=== PATIENT | female | born 1935 | race Asian ===

== ENCOUNTER 2017-02-20 10:15 | Emergency (ER) | payer MEDICARE, MEDICAID ==
[~2017-02-20] VITALS: Ht 152.4 cm; Wt 79.5 kg
[~2017-02-20 10:15] MED LIST: ALB083NB3 INHALATION; ALLO300T29 PO; AMLO10TA5 PO; ASPI-351 PO; COU25 PO; HYDR12.55 PO; HYDR1CAP2 PO; MICO30CR TP; OMEP20TA86 PO; PRAV80TA PO; VALS320T PO
[2017-02-20 10:20] VITALS: BP 149/63; PULSE 74; RESP 19; O2SAT 100
--- NOTE | 2017-02-20 10:23 | ED.REPORT ---
HPI-Dyspnea / Wheezing Date of Service Feb 20, 2017 ED Provider: Mak Garces MD Patient is an 81 year old female with a history of CHF, pacemaker and recent pleural effusion who presents to the ED complaining of shortness of breath onset 2 days ago. Associated symptoms include wheezing. She denies fever, vomiting, diarrhea, rash or chest pain. The patient was recently hospitalized on 02/04/[address] [facility] for pleural effusion. She recently traveled from the [facility] without any prescription medication. She has not been on any prescription medication since arriving in the [facility]. Nursing Notes Stated Complaint: SOB Chief Complaint: Respiratory Distress Nursing Notes Reviewed: Yes Allergies: Coded Allergies: No Known Allergies (Verified Allergy, Unknown, 02/20/17) Scheduled Albuterol-Expunged Drug, Do Not Renew! (Albuterol-Expunged Drug, Do Not Renew!) 0.83 Mg/Ml Nebu 2.5 MG HHN PRN Allopurinol (Allopurinol) 300 Mg Tablet 300 MG PO DAILY Allopurinol-Expunged Drug, Do Not Renew! (Allopurinol-Expunged Drug, Do Not Renew!) 300 Mg Tablet 300 MG PO DAILY AmLODIPine-Expunged Drug, Do Not Renew! (AmLODIPine-Expunged Drug, Do Not Renew! ) 10 Mg Tablet 10 MG PO DAILY Aspirin-Expunged Drug, Do Not Renew! (Aspirin-Expunged Drug, Do Not Renew!) 325 Mg Tablet 325 MG PO DAILY Atorvastatin (Lipitor) 40 Mg Tablet 40 MG PO DAILY Carvedilol (Carvedilol) 6.25 Mg Tablet 6.25 MG PO BID Furosemide (Lasix) 40 Mg Tablet 40 MG PO DAILY Hydrochlorothiazide-Expunged, Do Not Renew! (Hydrochlorothiazide-Expunged, Do Not Renew!) 12.5 Mg Tablet 12.5 MG PO DAILY Hydrocod/APAP-Expunged, Do Not Renew! (Hydrocod/APAP 5/500-Expunged, Do Not Renew!) 1 Cap Capsule 1 CAP PO PRN Nitrofurantoin Monohyd/M-Cryst (MacroBid) 100 Mg Capsule 100 MG PO BID Omeprazole (Omeprazole) 40 Mg Capsule. 40 MG PO DAILY Omeprazole-Expunged Drug, Do Not Renew! (Omeprazole-Expunged Drug, Do Not Renew! ) 20 Mg Tablet.dr 20 MG PO BID Pravastatin -Expunged Drug, Do Not Renew! (Pravachol-Expunged Drug, Do Not Renew !) 80 Mg Tablet 80 MG PO DAILY Valsartan (Valsartan) 320 Mg Tablet 320 MG PO DAILY Valsartan-Expunged Drug, Do Not Renew! (Diovan-Expunged Drug, Do Not Renew!) 320 Mg Tablet 320 MG PO DAILY Warfarin Inactive Drug Do Not Use (Coumadin Inactive Drug Do Not Use) 2.5 Mg Tablet 2.5 MG PO 17 Warfarin Sodium (Warfarin Sodium) 2.5 Mg Tablet 2.5 MG PO DAILY Miscellaneous Medications Miconazole Nit-Expunged Drug, Do Not Renew! (Miconazole Nit-Expunged Drug, Do Not Renew!) 28.4 Gm Cream.gm. 28.4 GM TP Miconazole Nitrate 2% Kit, take as directed General Time Seen by MD: 10:23 Chief Complaint Shortness of breath Hx Obtained From: Patient, Other family..., End Lathe Operator Arrived By: Walk-in Sudden in Onset?: Yes Onset Occurred: 2 days ago Symptom Duration: Since onset Associated with: Denies: Chest pain, Fever, Vomiting Recent Healthcare: Recent doctor visit, Recent hospitalization Similar Sx Previous: Yes Past Medical History Past Medical History CHF pacemaker pleural effusion Social History Other Social History: Good social support Ambulatory Status Independent Review of Systems Constitutional: Denies: Fever Respiratory: Reports: Shortness of breath, Wheezing, Denies: Non-productive cough Cardiovascular: Denies: Chest pain Skin: Denies Rash Complete sys rev & neg: except as marked. GI: Denies: Diarrhea, Nausea, Vomiting Physical Exam Initial Vital Signs Vital Signs (First) Date Time Temp Pulse Resp B/P Pulse Ox O2 Delivery O2 Flow Rate FiO2 02/20/17 10:20 36.4 74 19 149/63 100 Nasal Cannula 02/20/17 11:45 2 General/Constitutional: Awake, Alert Neck: Atraumatic, Supple, Full range of motion Respiratory / Chest: Atraumatic, Breath sounds NL, Breath sounds = bilat, No respiratory distress, No wheezing Heart Rate / Rhythm: Positive: Irreg irregular rhythm Abdomen: Atraumatic, Soft, Non-tender Lower Extremity / Pelvis / MS: Atraumatic, Full range of motion 1+ edema Skin: Atraumatic, Color NL, No rash, Warm, Dry Neurologic: Oriented X3, Speech NL, No motor deficits, No sensory deficits Head / Eyes: Atraumatic, Normocephalic, PERRL, EOMI Psychiatric: Affect NL, Mood NL Interpretation & Diagnostics Lab Results Interpretation Result Diagram: 02/20/17 1045 02/20/17 1045 Test 02/20/17 10:45 02/20/17 11:45 White Blood Count 10.6th/mm3 (3.8-10.1) Red Blood Count 3.77mil/mm3 (3.90-5.20) Hemoglobin 11.2g/dL (12.0-15.6) Hematocrit 33.7% (35.0-46.0) Mean Corpuscular Volume 89.4fL (81-100) Mean Corpuscular Hemoglobin 29.7pg (27.0-35.0) Mean Corpuscular Hemoglobin Concent 33.2% (32.0-37.0) Red Cell Distribution Width 14.3% (12.3-15.4) Platelet Count 221bil/L (150-400) Neutrophils (%) (Auto) 66.0% (40-74) Lymphocytes (%) (Auto) 22.1% (14-46) Monocytes (%) (Auto) 10.1% (4-12) Eosinophils (%) (Auto) 1.1% (0-5) Basophils (%) (Auto) 0.5% (0-3) Prothrombin Time 35.5sec (8.1-12.5) Prothromb Time International Ratio 3.24ratio Sodium Level 128mEq/L (134-144) Potassium Level 4.7mEq/L (3.5-5.2) Chloride Level 95mEq/L (97-108) Carbon Dioxide Level 18mmol/L (18-29) Blood Urea Nitrogen 28mg/dL (8-27) Creatinine 1.08mg/dL (0.57-1.00) Estimat Glomerular Filtration Rate 70mL/min (>59) Glucose Level 148mg/dL (60-99) Calcium Level 9.2mg/dL (8.5-10.1) Magnesium Level 1.7mg/dL (1.6-2.6) Total Bilirubin 1.5mg/dL (0.0-1.2) Aspartate Amino Transf (AST/SGOT) 39U/L (0-50) Alanine Aminotransferase (ALT/SGPT) 46U/L (0-32) Alkaline Phosphatase 54U/L (25-165) Troponin T 0.010ug/L (0.0-0.011) Pro-B-Type Natriuretic Peptide 1661pg/mL (0-738) Total Protein 7.0g/dL (6.4-8.4) Albumin 3.8g/dL (3.4-5.0) Hold Staples Top Tube Received (Received) Urine Color Straw (YELLOW) Urine Appearance Slightly cloudy Urine pH 5.5 (5.0-8.0) Urine Specific Ophiem 1.015 (1.003-1.035) Urine Protein 30mg/dL (NEG,TRACE) Urine Glucose (UA) Negativemg/dL (NEGATIVE) Urine Ketones Negativemg/dL (NEGATIVE) Urine Occult Blood Small (NEGATIVE) Urine Nitrite Positive (NEGATIVE) Urine Bilirubin Negative (NEGATIVE) Urine Urobilinogen Normalmg/dL (NORMAL) Urine Leukocyte Esterase Moderate (NEGATIVE) Urine RBC 3-10/hpf (0-2) Urine WBC 11-50/hpf (0-5) Urine Epithelial Cells Occasional/hpf (NONE-MOD) Urine Crystals None seen (NONE SEEN) Urine Bacteria Many/hpf (NONE-FEW) Urine Hyaline Casts None/lpf (NONE) Urine Granular Casts None seen (NONE SEEN) Urine Waxy Casts None seen (NONE SEEN) Urine Red Blood Cell Casts None seen (NONE SEEN) Urine White Blood Cell Casts None seen (NONE SEEN) Urine Mucus None seen (None Seen) Urine Trichomonas Present (NONE SEEN) Urine Yeast None (NONE SEEN) Urinalysis Comment None Urine Culture Reflexed Indicated ECG Interpretation ECG Interpretation: paced rhythm, rate 70 Time: 11:03 Interpreted by: ED physician X-Ray Chest Interpretation Chest Xray Interpretation: IMPRESSION: 1. Pulmonary edema with cardiomegaly suggesting congestive heart failure. 2. Possible small pleural effusions. 3. Bibasilar medial opacities consistent with compressive atelectasis or consolidation. Dictated by: Marcos Rider M.D. on 02/20/2017 at 10:55 Approved by: Marcos Rider M.D. on 02/20/2017 at 10:59 View: Portable, 1 view Interpretation / Wet Read by: Interpret - Radiologist Re-Eval/Medical Decision Med Decision/Clinical Course It seems that this woman was recently hospitalized in the [facility] for congestive heart failure and discharged in late November. She has recently traveled to [facility] but without any medications and has been off all prescribed medications for some time now. I think that her symptoms are entirely consistent with exacerbation of known congestive heart failure. Her lab and x-ray and physical exam today are consistent with congestive heart failure. She does not drop her oxygen saturations with exertion here in the emergency department on room air and therefore I believe it is safe to send her home for outpatient follow-up. I spoke with her provider's office agreed to make arrangements for her to be seen in the clinic within the next week. I have refilled all relevant medications to last her at least that long. Re-Evaluation/Progress : Time of Eval: 12:54 )( Re-Eval Resp / Chest: No wheezing Re-Evaluation/Progress Note: Patient states that she still wheezes when she tries to breath and that she has stopped taking her medications since she was seen in the [facility] . Discussed X-ray and lab results. Discussed plan for treatment and plan for discharge. The patient understands and agrees to the plan. All questions were addressed. Consultation : Referral / Consult Name: Jose Butler MD Consulted With: On-call physician Call Returned at: 13:04 Consultant Internship: Agrees with eval, Agrees with plan Counseled Regarding: Diagnosis, Lab results, Need for follow-up, When/why to return to ED Discharge & Departure Impression: Primary Impression: CHF exacerbation Congestive heart failure type: unspecified congestive heart failure type Qualified Code: I50.9 - Heart failure, unspecified Additional Impression: Bladder infection Disposition: Home Discharge Condition All VS Reviewed: Yes Condition: Stable Patient Instructions: Heart Failure (ED), Urinary Tract Infection in Women (ED) Additional Instructions: Thank you for trusting us with your care today. Your labs and X-ray were reassuring. The fluid in your lungs is most likely the reason you are wheezing when you breathe. I believe that your medications should make you feel quite a bit better over the coming days. Please follow up with your primary care physician next week. She should expect a phone call from the clinic in the coming 1 or 2 days, if not, call back and let them know that you need to be seen for an ER follow-up within the next few days. Return to the emergency department if you develop any new or worsening symptoms including chest pain, difficulty breathing, weakness or other concerning symptoms. You also have a bladder infection and I recommend that you take nitrofurantoin twice daily for 5 more days. Referrals: Lisa Iyer MD (PCP) Sean Attestation Portions of this note were transcribed by Jacquelin Berrios. I, Dr. Garces personally performed the history, physical exam and medical decision-making; I reviewed and confirmed the accuracy of the information in the transcribed note. Signed by:Sean Garcia, 02/20/17 and 1030 copies to: Lisa Iyer MD, Kirk H MD Feb 20, 2017 10:23 Vida Berrios Feb 20, 2017 10:30
--- NOTE | 2017-02-20 11:00 | DRSVH ---
PROCEDURE: X-RAY CHEST ONE VIEW, PORTABLE ([id number]) INDICATIONS: dyspnea TECHNIQUE: One view of the chest was acquired. COMPARISON: [facility], CR, XR CHEST 2VW, 07/13/2015, 11:30. FINDINGS: Surgical changes and devices: Left chest wall dual-lead pacemaker appears stable in position. Lungs and pleura: There is increased pulmonary edema bilaterally. Bibasilar retrocardiac opacities a re also demonstrated compatible with atelectasis or consolidation. The costophrenic angles are sligh tly indistinct which may represent small pleural effusions. Mediastinum: Heart size is enlarged. Bones and chest wall: No suspicious bony lesions. Overlying soft tissues appear unremarkable. IMPRESSION: 1. Pulmonary edema with cardiomegaly suggesting congestive heart failure. 2. Possible small pleural effusions. 3. Bibasilar medial opacities consistent with compressive atelectasis or consolidation. Dictated by: Marcos Rider M.D. on 02/20/2017 at 10:55 Approved by: Marcos Rider M.D. on 02/20/2017 at 10:59
[2017-02-20 11:02] LABS: Mean Corpuscular Hemoglobin 29.7 pg (27.0-35.0); Mean Corpuscular Volume 89.4 fL (81-100); Platelet Count 221 bil/L (150-400)
[2017-02-20 11:03] LABS: BASOPHILS % (AUTO) 0.5 % (0-3); EOSINOPHILS % (AUTO) 1.1 % (0-5); MONOCYTES % (AUTO) 10.1 % (4-12)
[2017-02-20 11:25] LABS: TROPONIN T 0.01 ug/L (0.0-0.011)
[2017-02-20] MEDS ORDERED: Furosemide 10 mg/mL 4 mL Inj IVPUSH ONE (11:35)
[2017-02-20 11:36] LABS: Magnesium 1.7 mg/dL (1.6-2.6)
[2017-02-20 11:45] VITALS: BP 148/71; PULSE 76; RESP 22; O2SAT 100
[2017-02-20 11:58] LABS: INR 3.24 ratio
[2017-02-20 12:10] LABS: APPEARANCE,URINE SLIGHTLY CLOUDY (CLEAR,HAZY); COLOR,URINE STRAW (YELLOW); PH,URINE 5.5 (5.0-8.0)
[2017-02-20 12:11] LABS: OCCULT BLOOD,URINE SMALL (NEGATIVE); UROBILINOGEN,URINE NORMAL (NORMAL)
[2017-02-20] MEDS ORDERED: LidocaineVisc 2%:Antacid 1:1 10 mL Syringe PO ONE (12:15)
[2017-02-20] MEDS ORDERED: cefTRIAXone Inj 1,000 MG in Dextrose 5% Minibag Plus 50 ML IV ONE (12:15)
[2017-02-20 12:18] VITALS: BP 136/52; PULSE 79; RESP 19; O2SAT 100
[2017-02-20] MEDS ORDERED: FURO-128 PO (13:12)
[2017-02-20] MEDS ORDERED: OMEP40CA36 PO (13:12)
[2017-02-20] MEDS ORDERED: LIP40 PO (13:12)
[2017-02-20] MEDS ORDERED: ALLO300T2 PO (13:12)
[2017-02-20] MEDS ORDERED: WARF2.5T82 PO (13:12)
[2017-02-20] MEDS ORDERED: VALS320T12 PO (13:12)
[2017-02-20] MEDS ORDERED: CARV6.252 PO (13:12)
[2017-02-20] MEDS ORDERED: NITR100 PO (13:19)
[2017-02-20 13:34] VITALS: BP 127/50; PULSE 65; RESP 19; O2SAT 99
== END 2017-02-20 13:55 | disposition home or self-care (01) ==
LOC: SED 10:15
DX: I50.9 Heart failure, unspecified (principal); N30.90 Cystitis, unspecified without hematuria; B96.1 Klebsiella pneumoniae [K. pneumoniae] as the cause of diseases classified elsewhere; Z79.01 Long term (current) use of anticoagulants; Z79.82 Long term (current) use of aspirin; Z95.0 Presence of cardiac pacemaker
CPT/HCPCS: 36415; 71010; 80053; 81000; 83735; 83880; 84484; 85025; 85610; 87077; 87086; 87088; 87186; 93005; 96365; 96375; 99285; J0696; J1940

== ENCOUNTER 2017-02-26 17:07 | Inpatient (IN) | payer MEDICARE, MEDICAID ==
[~2017-02-26] VITALS: Ht 149.9 cm; Wt 78.9 kg
[2017-02-26] VITALS (9 sets, daily range): BP systolic 127–139; BP diastolic 64–90; PULSE 69–75; RESP 16–29; O2SAT 97–100
[~2017-02-26 17:07] MED LIST changes: +ALLO300T2 PO; +CARV6.252 PO; +FURO-128 PO; +LIP40 PO; +NITR100 PO; +OMEP40CA36 PO; +VALS320T12 PO; +WARF2.5T82 PO
[2017-02-26] MEDS ORDERED: Albuterol-Ipratropium 3 mL Inhalation Solution NEB ONE (17:25)
--- NOTE | 2017-02-26 17:38 | ED.REPORT ---
HPI-Dyspnea / Wheezing Date of Service Feb 26, 2017 ED Provider: Doc,Ed MD History of Present Illness: 81-year-old female here for shortness of breath 2 days. She was seen here for the same 6 days ago. Treated For CHF exacerbation and discharged home. Also diagnosed with UTI at that time. In the last 6 days she has become more weak and more short of breath as well. Shortness of breath worsens with activity. No cough, no sputum production. It seemed to get a lot worse 2 days ago. No fever. History of asthma but no COPD patient is a nonsmoker. Also complains of nausea. pt has pacemaker. Nursing Notes Stated Complaint: SHORTNESS OF BREATH/WEAKNESS Chief Complaint: Respiratory Distress Nursing Notes Reviewed: Yes Allergies: Coded Allergies: No Known Allergies (Verified Allergy, Unknown, 02/20/17) Scheduled Alendronate Sodium (Fosamax) 70 Mg Tablet 70 MG PO WEEKLY THURSDAYS Allopurinol (Allopurinol) 300 Mg Tablet 300 MG PO DAILY Amlodipine (Amlodipine) 10 Mg Tablet 10 MG PO QAM Aspirin Chew (Aspirin Chew) 81 Mg Chew 81 MG PO QAM Atorvastatin (Lipitor) 40 Mg Tablet 40 MG PO HS Carvedilol (Carvedilol) 6.25 Mg Tablet 6.25 MG PO BID Furosemide (Lasix) 40 Mg Tablet 40 MG PO DAILY Omeprazole (Omeprazole) 40 Mg Capsule.dr 40 MG PO DAILY Valsartan (Valsartan) 320 Mg Tablet 320 MG PO HS Warfarin Sodium (Warfarin Sodium) 2.5 Mg Tablet 1.25 MG PO QPM Scheduled PRN Albuterol Neb Soln (Albuterol Neb Soln) 2.5 Mg/3 Ml Vial.neb 2.5 MG INHALATION Q4H PRN PRN For Shortness of Breath Hydrocodone-Acetaminophen 5-325 mg (Hydrocodone-Acetaminophen 5-325 mg) 1 Each Tablet 1 TABLET PO BID PRN PRN For Pain Meclizine (Bonine) 25 Mg Tab.chew 12.5 MG PO TID PRN PRN For Nausea/Vomiting Zinc Oxide (Zinc Oxide) 57 Gm Oint...g. 1 APPLIC TP BID PRN PRN RASH General Time Seen by MD: 17:38 Chief Complaint Asthma attack, Congestive heart failure, Shortness of breath, Wheezing Hx Obtained From: Son, Daughter Arrived By: Walk-in Sudden in Onset?: No Onset Occurred: 2 days ago Symptom Duration: 2 days Location: : Substernal Severity: Current: No pain currently Severity: Maximum: Mild Recent Healthcare: Recent doctor visit Similar Sx Previous: Yes Past Medical History Past Medical History Notes: chf, asthma, Past Medical History CHF pacemaker pleural effusion asthma Social History Other Social History: Good social support Ambulatory Status Independent Review of Systems Basic Review of Systems Eyes: Vision NL, No discharge GI: No abdominal pain, No anorexia, No nausea, No vomiting Constitutional: Reports: Fatigue, Denies: Chills, Fever Respiratory: Reports: Dyspnea on exertion, Shortness of breath, Wheezing, Denies: Non-productive cough Cardiovascular: Reports: Chest pain, Dyspnea on exertion Complete sys rev & neg: except as marked. Physical Exam Initial Vital Signs Vital Signs (First) Date Time Temp Pulse Resp B/P Pulse Ox O2 Delivery O2 Flow Rate FiO2 02/26/17 17:09 36 69 24 139/73 97 Room Air Initial VS: Reviewed, Vital signs normal Head / Eyes: Atraumatic, Normocephalic, PERRL ENT: Mucous membranes moist, Conjunctiva normal, No scleral icterus Abdomen / GI: Soft, Non-tender, No guarding, No rebound, No distention Neurologic: Alert, Oriented, Nonfocal Psychiatric: Mood/affect normal, Behavior normal, Normal thought content General/Constitutional: Awake, Alert Distress / Hydration: Positive: Distress mild Neck: Atraumatic, Supple, No meningismus, Full range of motion, No swelling, Non-tender, No masses Wheezing / Retractions: Positive: Prolonged exp phase, Wheezing expiratory ( prolonged), Wheezing severe Cardiovascular: Heart rate NL, Regular rhythm, Heart sounds NL, Peripheral circulation NL Abdomen: Soft, Non-tender, No guarding, No rebound Skin: Color NL, No rash, Warm, Dry, Turgor NL Interpretation & Diagnostics Lab Results Interpretation Result Diagram: 02/26/17 1727 02/26/17 1727 Test 02/26/17 17:27 White Blood Count 9.2th/mm3 (3.8-10.1) Red Blood Count 3.59mil/mm3 (3.90-5.20) Hemoglobin 10.7g/dL (12.0-15.6) Hematocrit 30.5% (35.0-46.0) Mean Corpuscular Volume 85.0fL (81-100) Mean Corpuscular Hemoglobin 29.8pg (27.0-35.0) Mean Corpuscular Hemoglobin Concent 35.1% (32.0-37.0) Red Cell Distribution Width 13.8% (12.3-15.4) Platelet Count 191bil/L (150-400) Neutrophils (%) (Auto) 73.0% (40-74) Lymphocytes (%) (Auto) 14.5% (14-46) Monocytes (%) (Auto) 11.8% (4-12) Eosinophils (%) (Auto) 0.4% (0-5) Basophils (%) (Auto) 0.1% (0-3) Prothrombin Time 16.5sec (8.1-12.5) Prothromb Time International Ratio 1.53ratio Sodium Level 112mEq/L (134-144) Potassium Level 4.4mEq/L (3.5-5.2) Chloride Level 78mEq/L (97-108) Carbon Dioxide Level 20mmol/L (18-29) Blood Urea Nitrogen 26mg/dL (8-27) Creatinine 0.68mg/dL (0.57-1.00) Estimat Glomerular Filtration Rate 119mL/min (>59) Glucose Level 148mg/dL (60-99) Calcium Level 8.2mg/dL (8.5-10.1) Total Bilirubin 1.9mg/dL (0.0-1.2) Aspartate Amino Transf (AST/SGOT) 47U/L (0-50) Alanine Aminotransferase (ALT/SGPT) 49U/L (0-32) Alkaline Phosphatase 47U/L (25-165) Troponin T < 0.010ug/L (0.0-0.011) Pro-B-Type Natriuretic Peptide 2710pg/mL (0-738) Total Protein 6.8g/dL (6.4-8.4) Albumin 3.7g/dL (3.4-5.0) Hold Staples Top Tube Received (Received) Re-Eval/Medical Decision Med Decision/Clinical Course ER MD reviewed EKG discussed wtih dr bach, will admit. After multiple re-eval's patient does look more comfortable after albuterol treatments still has prolonged expiratory wheeze. Nephrology order serum osmolality, urine osmolality, urine sodium. 1000ml fluid restriction, d/c omeprazole Discharge & Departure Shift Change Sign-Out Laboratory Evaluation: Lab evaluation discussed Response to Therapy: Improved Impression: Primary Impression: Respiratory distress Additional Impressions: CHF exacerbation Congestive heart failure type: unspecified congestive heart failure type Qualified Code: I50.9 - Heart failure, unspecified Hyponatremia Disposition: ADMITTED TO HOSPITAL Discharge Condition All VS Reviewed: Yes Condition: Stable Referrals: Lisa Iyer MD (PCP) EDSupervising Provider for APC: Bong Bach Linnea K ARNP Feb 26, 2017 17:38 All VS Reviewed: Yes Condition: Stable Referrals: Lisa Iyer MD (PCP) EDSupervising Provider for APC: Bong Bach Linnea K ARNP Feb 26, 2017 17:38
[2017-02-26] MEDS ORDERED: Albuterol 2.5 mg/3 mL Inhalation Solution NEB ONE (17:39)
[2017-02-26] MEDS ORDERED: Albuterol 0.5% (5mg/mL) 20 mL Inhalation Solution NEB ONE (17:45)
[2017-02-26] MEDS ORDERED: Ondansetron 2 mg/mL 2 mL Inj IVPUSH ONE (17:45)
[2017-02-26 17:48] LABS: BASOPHILS % (AUTO) 0.1 % (0-3); EOSINOPHILS % (AUTO) 0.4 % (0-5); MONOCYTES % (AUTO) 11.8 % (4-12); Mean Corpuscular Hemoglobin 29.8 pg (27.0-35.0); Platelet Count 191 bil/L (150-400)
--- NOTE | 2017-02-26 18:07 | DRSVH ---
PROCEDURE: X-RAY CHEST ONE VIEW, PORTABLE ([id number]) INDICATIONS: SHORTNESS OF BREATH TECHNIQUE: One view of the chest was acquired. COMPARISON: [facility], CR, XR CHEST 1VW (PORTABLE), 02/20/2017, 10:28. FINDINGS: Surgical changes and devices: There is a left chest wall dual lead pacemaker redemonstrated. Lungs and pleura: No pleural effusions or pneumothorax. There is mild pulmonary edema. Mediastinum: Mediastinal contours appear unchanged. Heart size is enlarged. Bones and chest wall: No suspicious bony lesions. Overlying soft tissues appear unremarkable. IMPRESSION: 1. Mild pulmonary edema and cardiomegaly suggesting congestive heart failure. Dictated by: Marcos Rider M.D. on 02/26/2017 at 18:02 Approved by: Marcos Rider M.D. on 02/26/2017 at 18:05
[2017-02-26 18:11] LABS: INR 1.53 ratio
[2017-02-26 18:16] LABS: TROPONIN T < 0.010 ug/L (0.0-0.011)
[2017-02-26] MEDS ORDERED: Furosemide 10 mg/mL 4 mL Inj IVPUSH ONE (18:20)
[2017-02-26] MEDS ORDERED: Nitroglycerin 2% 1 Gm Ointment TOPICAL SCH (19:25)
[2017-02-26] MEDS ORDERED: ALBU2.5V4 INHALATION (20:30)
[2017-02-26] MEDS ORDERED: ASPI81TA3 PO (20:48)
[2017-02-26] MEDS ORDERED: AMLO10TA3 PO (20:48)
[2017-02-26] MEDS ORDERED: LIP40 PO (20:48)
[2017-02-26] MEDS ORDERED: HYDR-4003 PO (20:48)
[2017-02-26] MEDS ORDERED: VALS320T12 PO (20:49)
[2017-02-26] MEDS ORDERED: WARF2.5T82 PO (20:50)
[2017-02-26] MEDS ORDERED: ALEN70TA2 PO (20:50)
[2017-02-26] MEDS ORDERED: MECL-114 PO (20:52)
[2017-02-26] MEDS ORDERED: ZINC57OI TP (20:54)
[2017-02-26] MEDS ORDERED: Alum-Mag Hydrox-Simeth 30 mL Suspension PO PRN ×2 (21:45→22:00)
[2017-02-26] MEDS ORDERED: Ondansetron 2 mg/mL 2 mL Inj IVPUSH PRN ×2 (21:45→22:00)
[2017-02-26] MEDS ORDERED: Polyethylene Glycol (PEG) 17 Gm Powder PO PRN (22:00)
[2017-02-26] MEDS ORDERED: Senna-Docusate 8.6-50 mg Tablet PO PRN (22:00)
[2017-02-26] MEDS: HYDROcodone-APAP 5-325 mg Tablet PO PRN (23:11)
--- NOTE | 2017-02-26 23:15 | PCM.HPMED ---
Subjective Date of Service Feb 26, 2017 Primary Provider: Admitting Physician: Jasyhree Grimm DO Primary Care Physician: Lisa Iyer MD Attending Physician: Jayshree Grimm DO Admit Status: From the Emergency Department Chief Complaint: Shortness of breath History of Present Illness: Charlotte Mccann is an 81-year-old woman history of congestive heart failure, chronic kidney disease stage III, paroxysmal atrial fibrillation status post dual-chamber pacemaker placement, on anticoagulation with warfarin, who presents to the emergency department with her family for 2 days of ongoing shortness of breath. She was seen here for the same 6 days ago and treated for CHF exacerbation and discharged home with a diagnosis of UTI at the same time. She became weaker and more short of breath as the days went on, family describes her as having a chronic cough, nonproductive. Her shortness of breath as well as lower extremity edema. She get worse 2 days ago. She has no history of asthma or COPD and is a nonsmoker, however she is noticeably wheezing which is also worsened over the last 2 days. Family claims that 2 months ago they were in the [facility] where she had similar presentation, requiring 4 days of treatment in the hospital, at which time they also gave her nebulizer treatments every 4 hours. In the emergency department she was found to have a serum sodium of 112, chloride 78, creatinine 0.68, ALT of 49, BNP 2710, negative troponin INR 1.53 EKG: Atrial ventricular paced complexes. Heart rate 70, QTC 504 In the emergency department, dog hair clipper construction electrician was contacted, Dr. Kevin Peace, requested patient be admitted and be put on fluid restriction. Endorses weakness, shortness of breath, cough, wheezing, bilateral lower extremity edema. Review of Systems: A comprehensive review of systems was conducted with the patient and found to be negative except as above in the history of present illness. Allergies Coded Allergies: No Known Allergies (Verified Allergy, Unknown, 02/20/17) Home Medications Scheduled Alendronate Sodium (Fosamax) 70 Mg Tablet 70 MG PO WEEKLY THURSDAYS Allopurinol (Allopurinol) 300 Mg Tablet 300 MG PO DAILY Amlodipine (Amlodipine) 10 Mg Tablet 10 MG PO QAM Aspirin Chew (Aspirin Chew) 81 Mg Chew 81 MG PO QAM Atorvastatin (Lipitor) 40 Mg Tablet 40 MG PO HS Carvedilol (Carvedilol) 6.25 Mg Tablet 6.25 MG PO BID Furosemide (Lasix) 40 Mg Tablet 40 MG PO DAILY Omeprazole (Omeprazole) 40 Mg Capsule.dr 40 MG PO DAILY Valsartan (Valsartan) 320 Mg Tablet 320 MG PO HS Warfarin Sodium (Warfarin Sodium) 2.5 Mg Tablet 1.25 MG PO QPM Scheduled PRN Albuterol Neb Soln (Albuterol Neb Soln) 2.5 Mg/3 Ml Vial.neb 2.5 MG INHALATION Q4H PRN PRN For Shortness of Breath Hydrocodone-Acetaminophen 5-325 mg (Hydrocodone-Acetaminophen 5-325 mg) 1 Each Tablet 1 TABLET PO BID PRN PRN For Pain Meclizine (Bonine) 25 Mg Tab.chew 12.5 MG PO TID PRN PRN For Nausea/Vomiting Zinc Oxide (Zinc Oxide) 57 Gm Oint...g. 1 APPLIC TP BID PRN PRN RASH PMH Obstructive sleep apnea, uses CPAP Chronic kidney disease stage III Gout GERD Diabetes type II Hypertension Hyperlipidemia NSTEMI in 2011 Osteoporosis Coronary artery disease Paroxysmal atrial fibrillation on Coumadin, status post dual-chamber pacemaker placement. History of tachybradycardia syndrome in 2013 History of asthma per outpatient record Surgical History Pacemaker placement 2011, cardiac catheterization February 2008 Family History Both parents from heart attacks. Has Brother with CHF Social History Hx Alcohol Use: No Hx Substance Use: No Hx Tobacco Use: No Smoking Status: Never Smoker Living Arrangement: with Family Exam Vital Signs Vital Sign - Last Date Time Temp Pulse Resp B/P Pulse Ox O2 Delivery O2 Flow Rate FiO2 02/26/17 22:53 70 02/26/17 22:13 36.4 16 133/65 99 Room Air Exam General: Sitting up at bedside, alert, not oriented to place, time, or knowing why she is here. HEENT: Normocephalic, atraumatic, EOMI grossly, neck is supple without lymphadenopathy, oral mucosa is moist, conjunctiva is pink. Cardiovascular: Regular rate and rhythm, no clicks murmurs rubs, peripheral pulses 2/4 equal bilaterally, Pulmonary: Tachypneic, late expiratory wheeze, bibasilar rales. Abdominal: Soft to palpation, bowel sounds present 4, no hepatosplenomegaly. Negative rebound. Extremities: Mild to moderate bilateral lower extremity edema to distal knee. No wounds or sores. Neuro: Neurologically grossly intact, strength is equal bilaterally upper and lower extremities. MSK: able to move extremities on their own volition, strength 5 out of 5 equal bilaterally to upper and lower extremities. Lymph: no cervical or supraclavicular lymphadenopathy Skin: no erythema or edema Psychiatric: Patient is only oriented to "the state" she is unable to give the year, stating the last one she remembers is 2005. She does not know why she is at the hospital and think it has to do with her feeling like she had to burp. Lab and Diagnostics Result Diagram: 02/26/17172602/26/171726 X-Rays, CTs and MRIs Chest x-ray 02/26/2017 IMPRESSION: 1. Mild pulmonary edema and cardiomegaly suggesting congestive heart failure. Dictated by: Marcos Rider M.D. on 02/26/2017 at 18:02 12-lead ECG Atrial and ventricular paced, heart rate 70, QTC 504 Assessment & Plan #Acute on chronic congestive heart failure, present on admission, treatment ongoing - Presumably caused by fluid overload, under diuresis. Evidence by fluid on x- ray (reviewed by admitting team), bilateral lower extremity edema, and dry cough. - ECHO in the morning, ordered - Daily Weights I&Os. Fluid restriction - Furosemide given on admission, continue to monitor sodium, reeval in am and continue diuresis - Continue home carvedilol 6.25 mg twice a day - Continue home valsartan 320 mg tablet daily - Cardiology consultation given now 3 hospital visits in 3 months for CHF. #Acute hyponatremia, present on admission, treatment initiated -Presumed due to CHF, not on thiazide diuretics, no history of hyponatremia in the past, family does not states she has been drinking more than normal, believed to be dilutional in nature. - Serum osmolality, urine sodium, - serum sodium every 2 hours - Fluid restriction to 1 L a day of free water - nephrology consult - Not oriented to place, time, per family this is baseline. Given the chronic nature of dementia, will correct Na slowly. Hold hypertonic salin until seen by nephro. #Dyspnea, present on admission, treatment initiated an evaluation ongoing -History of asthma, has inhalers at home, has responded to nebulizer treatments in the past no official diagnosis of COPD, no smoking history -Dyspnea may be due to CHF, and wheeze may be cardiac in nature. -Continue home inhaler -DuoNeb every 4 as needed for dyspnea and wheezing #Chronic Gastroesophageal reflux disease, present on admission -Hold omeprazole 40 mg daily as per nephrology #chronic hypertension, controlled, present on admission Well-controlled, continue home medications of losartan, carvedilol, amlodipine, #Obstructive sleep apnea on CPAP, present on admission Instruct family to bring in patient's CPAP machine #Paroxysmal atrial fibrillation, not present on admission, status post pacemaker placement, on anticoagulation. Stable Warfarin dosed by pharmacy INR subtherapeutic Bridge to Enoxaparin 80mg BID #Chronic kidney disease, stage III, present on admission, stable. Hold oral furosemide, change to IV 40 mg furosemide nephrology consultation as above GI prophylaxis not indicated Pain management home medication of Vicodin CODE STATUS: Full code. Patient does not speak Georgian, she is not able take display competent decision making given altered mental status, son verbally stated he wished patient to be full code. No Living Will or advanced directives per family. DVT prophylaxis, patient on warfarin. And daily aspirin Patient admitted under inpatient status with expected length of stay > 2 midnights for severity of present symptoms, complexities of treatment plan and risk for adverse events Pain Evaluation: Adequate Pain Control GI Prophylaxis: Proton Pump Inhibitor VTE Prophylaxis: Theraputic Anticoag with Warfarin Resuscitation Status: CPR: Attempt Resuscitation Attending Statement The patient was seen and examined together with house staff on 02/26/2017 and I agree with the history, exam and plan as outlined in the note above. Sesar Monk DO Feb 26, 2017 23:15 Jayshree Grimm DO Feb 27, 2017 00:17
--- NOTE | 2017-02-26 23:30 | NUR ---
admission patient admitted to room 2026. speaks tagalog only. brought interpretter on a stck, but patient is very hard of hearing, and the interpretter was not helpful. Family at bedside able to help with communication.
[2017-02-27] VITALS (9 sets, daily range): BP systolic 120–142; BP diastolic 42–77; PULSE 64–94; RESP 10–20; O2SAT 95–99
[2017-02-27 00:03] LABS: Magnesium 1.7 mg/dL (1.6-2.6)
[2017-02-27 00:26] LABS: OSMOLALITY, URINE 302 mOs/kH2O (250-1200)
[2017-02-27] MEDS: Albuterol-Ipratropium 3 mL Inhalation Solution NEB SCH ×2 (00:42→05:58)
[2017-02-27] MEDS: Sodium Chloride LOK Flush 10 mL Syringe IVFLUSH SCH ×4 (00:54→20:42)
--- NOTE | 2017-02-27 01:17 | NUR ---
fall risk patient very noncompliant with fall precautions. does not use call light. attempts to get oob without assistance. shadia alarm on bed and chair patient refuses to sleep in bed. placed in recliner. son at chair side. will monitor. Addendum: 02/27/17 at 0119 by ALAN MAYO RN per family report. patient fell at home 2 days ago.
--- NOTE | 2017-02-27 02:12 | NUR ---
noncompliant patient noncompliant with staying in bed or recliner. insists on lying down on futon. explained to son and patient (sign language) that patient's mobility is poor for getting up from the futon. called regi mancilla rn for assistance. called language line for vision rehabilitation therapist. none available. chapo zaragoza interpretted with regi rn spoke with son. plan for patient to stay in window bed (she is asleep)
--- NOTE | 2017-02-27 02:23 | NUR ---
Discussion with Son Bird Called our service desk manager services who were unable to provide a go[employer]enna service desk manager at this time even when they tried outsourcing. Because of the necessity of discussing the current issue with the patient sleeping on the couch contacted Kasia garcia RN on [facility] who came down to interpret. Discussed with son that there were several safety concerns with the patient on the couch. If something were to happen to her, we would have great difficulty accessing her. With her history of falls and heavy assist, the low bed that is not able to adjust is a hazard to the patient's and staff's health. Prior to speaking with son, primary RN had medicated patient with pain medication and brought in recliner to try to make her more comfortable. Son has asked that we allow patient to sleep on the couch at this time as he states she has not slept the past 2 days. Son also said he will be the one to get her up, until he can convince the patient to get back in the bed. Staff will be bringing in a new bed with thicker mattress to see if patient can be made more comfortable in the hospital bed, but because of patient's history of dementia and difficulty hearing she is very difficult for even the son to direct.
[2017-02-27 02:36] LABS: APPEARANCE,URINE CLOUDY (CLEAR,HAZY); COLOR,URINE YELLOW (YELLOW); OCCULT BLOOD,URINE SMALL (NEGATIVE); PH,URINE 5.5 (5.0-8.0); UROBILINOGEN,URINE NORMAL (NORMAL)
[2017-02-27 04:47] LABS: BASOPHILS % (AUTO) 0.1 % (0-3); EOSINOPHILS % (AUTO) 0.2 % (0-5); MONOCYTES % (AUTO) 10.4 % (4-12); Mean Corpuscular Hemoglobin 30.2 pg (27.0-35.0); Mean Corpuscular Volume 85.2 fL (81-100); NEUTROPHILS % (AUTO) 79.3 % (40-74); Platelet Count 183 bil/L (150-400)
[2017-02-27 05:02] LABS: INR 1.57 ratio
[2017-02-27] MEDS ORDERED: Pantoprazole 40 mg ER24 Tablet PO SCH (06:30)
--- NOTE | 2017-02-27 07:43 | NUR ---
activity patient slept well on the window seat. son at bedside to help with cares.
[2017-02-27] MEDS ORDERED: Furosemide 10 mg/mL 4 mL Inj IVPUSH SCH (08:30)
--- NOTE | 2017-02-27 09:11 | PCM.PNMED ---
Subjective Date of Service Feb 27, 2017 Subjective She has some left leg pain. She denies confusion. Mild headache. She did fall and has a left facial contusion with ecchymosis from 3 days ago. She denies dyspnea. No abdominal pain. She has a good appetite. No diarrhea. No overnight events Exam Vital Signs Vital Sign - Last Date Time Temp Pulse Resp B/P Pulse Ox O2 Delivery O2 Flow Rate FiO2 02/27/17 08:53 36.4 10 142/75 97 Room Air 02/27/17 00:45 94 02/26/17 23:29 1.00 Intake and Output 02/26/17 02/26/17 02/27/17 Cumulative From/Thru 15:00 23:00 07:00 02/26/17 17:09 - 02/27/17 05:30 Output Total 400 ml 400 ml Balance -400 ml -400 ml Output Urine Total 400 ml 400 ml Exam Alert and oriented -3, no distress. Fluent speech Anicteric sclera. Lungs are clear with normal rate and effort Heart is regular without murmur gallop or rub Abdomen soft nontender, flat Extremities are with 1+ edema bilaterally Skin is free of rash or lesions. Right cheek ecchymosis IVs and Medications Medications Reviewed: Medications were reviewed in detail Lab and Diagnostics Result Diagram: 02/27/17 0430 02/27/17 0655 X-Rays, CTs and MRIs Chest x-ray 02/26/2017 IMPRESSION: 1. Mild pulmonary edema and cardiomegaly suggesting congestive heart failure. Dictated by: Marcos Rider M.D. on 02/26/2017 at 18:02 12-lead ECG Atrial and ventricular paced, heart rate 70, QTC 504 Assessment & Plan # Acute on chronic diastolic heart failure and pulmonary edema and elevated BNP. , present on admission, treatment ongoing - Presumably caused by fluid overload, under diuresis. Evidence by fluid on x- ray (reviewed by admitting team), bilateral lower extremity edema, and dry cough. - ECHO in the morning, ordered, last echo revealed normal ventricular function and no valvular heart disease. - Daily Weights I&Os. Fluid restriction - Furosemide given on admission, continue to monitor sodium, reeval in am and continue diuresis - Continue home carvedilol 6.25 mg twice a day - Continue home valsartan 320 mg tablet daily - Cardiology consultation given now 3 hospital visits in 3 months for CHF. We will continue to diuresis and fluid restrict. # Acute hypovolemic hyponatremia, present on admission, treatment initiated -Presumed due to CHF, not on thiazide diuretics, no history of hyponatremia in the past, family does not states she has been drinking more than normal, believed to be dilutional in nature. - Serum osmolality, urine sodium, - serum sodium every 2 hours - Fluid restriction to 1 L a day of free water - nephrology consult - Not oriented to place, time, per family this is baseline. Given the chronic nature of dementia, will correct Na slowly. Hold hypertonic salin until seen by nephro. We will discuss with nephrology this morning. # Gastroesophageal reflux disease, present on admission -Hold omeprazole 40 mg daily as per nephrology # Essential hypertension, controlled, present on admission Well-controlled, continue home medications of losartan, carvedilol, amlodipine, # Obstructive sleep apnea on CPAP, present on admission Instruct family to bring in patient's CPAP machine # Paroxysmal atrial fibrillation, not present on admission, status post pacemaker placement, on anticoagulation. Stable Warfarin dosed by pharmacy INR subtherapeutic Bridge to Enoxaparin 80mg BID # Chronic kidney disease, stage III, present on admission, stable. Hold oral furosemide, change to IV 40 mg furosemide nephrology consultation as above GI prophylaxis not indicated Pain management home medication of Vicodin CODE STATUS: Full code. Patient does not speak Indonesian, she is not able take display competent decision making given altered mental status, son verbally stated he wished patient to be full code. No Living Will or advanced directives per family. DVT prophylaxis, patient on warfarin. And daily aspirin Patient admitted under inpatient status with expected length of stay > 2 midnights for severity of present symptoms, complexities of treatment plan and risk for adverse events GI Prophylaxis: Proton Pump Inhibitor VTE Prophylaxis: Theraputic Anticoag with Warfarin Resuscitation Status: CPR: Attempt Resuscitation Gurmeet Flores MD Feb 27, 2017 09:11 VTE Prophylaxis: Theraputic Anticoag with Warfarin Resuscitation Status: CPR: Attempt Resuscitation Gurmeet Flores MD Feb 27, 2017 09:11
[2017-02-27] MEDS ORDERED: Tolvaptan 15 mag Tablet PO ONE (09:55)
--- NOTE | 2017-02-27 10:58 | NUR ---
Palliative Care Palliative Care received verbal order from Dr Flores 02/27/17 to assist with goals of care. Patient admitted 02/26/17. Mony Ferguson (niece) [phone] Monica Mccann ([facility]) [phone] Palliative Care to follow. Kamilla Cazares
--- NOTE | 2017-02-27 11:57 | PCM.CONPAL ---
Date of Service Feb 27, 2017 Date of Hospital Admission: Feb 26, 2017 at 21:18 Date of Palliative Consult: Feb 27, 2017 Requesting Provider: Gurmeet Flores MD Reason Palliative Care Consult: Goals of Care Discussion Hospital Unit @time of consult: Progressive Care Palliative Care Recommendation 81-year-old female with history of CHF, chronic atrial fibrillation on anticoagulation, ALBER on chronic CPAP, stage III CRF, etc., who presented with severe hyponatremia and complaints of progressive dyspnea. Per family, was hospitalized with similar complaints in the [facility] several months ago when they were told she had congestive heart failure. Palliative medicine consulted to assist patient and family with determination of goals of care. Conversation today primarily with patient's family members, as she was lethargic and dyspneic. Summary of palliative recommendations: -Symptom management (Pain/other)- management of CHF/pulmonary edema with usual diuretics/carvedilol/ARB/etc. Nephrology following. Encouraged family to bring in her CPAP device so she may continue to use it per routine. Additional management per medical/customer service sales consultant teams. -DPOA/Advanced Directives/POLST- per family, no documentation previously completed. Lives with her son Darrius (currently out of town commercial fishing) and his Tamia- niece Mony that I spoke with today indicates family feels it makes most sense that Darrius and Tamia act as POA. Family has never discussed advanced directive issues with the patient- they have been reluctant/avoiding doing so, but today Mony says that they are all beginning to realize this would be something important to undertake, and will begin having these conversations amongst themselves over the next several days. At this time , they wish patient to remain full code. Palliative medicine will continue to follow and encourage/support these conversations Plan on assisting them in completing a POLST prior to discharge -Family/emotional support- excellent support from family members and friends as outlined Additional Medical Diagnoses with primary management by Hospitalist team include : # Acute on chronic diastolic heart failure and pulmonary edema and elevated BNP. , present on admission, treatment ongoing # Acute hypovolemic hyponatremia, present on admission, treatment initiated # Gastroesophageal reflux disease, present on admission # Essential hypertension, controlled, present on admission # Obstructive sleep apnea on CPAP, present on admission # Paroxysmal atrial fibrillation, not present on admission, status post pacemaker placement, on anticoagulation. Stable # Chronic kidney disease, stage III, present on admission, stable. Problems: End of Life Preferences Remains full code at this time Goals of Care Recovery/stabilization and able to return home to live with her son and daughter -in-law Disposition To be determined Resuscitation Status Resuscitation Status: CPR: Attempt Resuscitation POLST Updates/Changes Previous POLST?: No . Pain: None Symptom management: Drowsiness/sleepiness, Dyspnea Pt History History of Present Illness Per admission H&P: 81-year-old woman history of congestive heart failure, chronic kidney disease stage III, paroxysmal atrial fibrillation status post dual-chamber pacemaker placement, on anticoagulation with warfarin, who presents to the emergency department with her family for 2 days of ongoing shortness of breath. She was seen here for the same 6 days ago and treated for CHF exacerbation and discharged home with a diagnosis of UTI at the same time. She became weaker and more short of breath as the days went on, family describes her as having a chronic cough, nonproductive. Her shortness of breath as well as lower extremity edema. She get worse 2 days ago. She has no history of asthma or COPD and is a nonsmoker, however she is noticeably wheezing which is also worsened over the last 2 days. Family claims that 2 months ago they were in the [facility] where she had similar presentation, requiring 4 days of treatment in the hospital, at which time they also gave her nebulizer treatments every 4 hours. In the emergency department she was found to have a serum sodium of 112, chloride 78, creatinine 0.68, ALT of 49, BNP 2710, negative troponin INR 1.53 EKG: Atrial ventricular paced complexes. Heart rate 70, QTC 504 Palliative medicine consulted to assist patient and family in determination of goals of care. Prior to visiting, I reviewed her records in the EMR in detail and spoke with her bedside nurse. When I arrived, patient was sitting up in a Shanda chair, with multiple family members present, including her niece Mony, a grand niece and family friend. Mony advises me that patient's [id number] Tamia is the primary caregiver (patient lives with Tamia and her Darrius). The patient is somewhat lethargic but opens her eyes and responds briefly to questions. She speaks no Amharic so all translating as done by family members. She is a bit tachypneic and also has some audible expiratory wheezes. She denies any significant pain or other distress. Family says that she seems about the same as when she was admitted. I spoke at length with family members and friends, reviewing her past personal and medical history and answering questions that they had about her diagnoses, laboratory results, status and our plans for care. Given language barrier and her persistent symptomatology, as well as her persistent severe hyponatremia, patient had very limited ability to participate in conversation today Past Medical History Significant PMH Noted: Congestive heart failure, diastolic, chronic Obstructive sleep apnea, uses CPAP Chronic kidney disease stage III Gout GERD Diabetes type II Hypertension Hyperlipidemia and obesity NSTEMI in 2011 Osteoporosis Coronary artery disease Paroxysmal atrial fibrillation on Coumadin, status post dual-chamber pacemaker placement. History of tachybradycardia syndrome in 2013 History of asthma per outpatient record Surgical History Pacemaker placement 2011, cardiac catheterization February 2008 Social History Occupation: Retired homemaker Family Members Issues: 8 children; 3 sons here in the [place] She visited the [facility] several months ago and during that visit required hospitalization for what sounds like congestive heart failure/pulmonary edema She lives with her son Darrius and his Tamia; he is away now working as a commercial lending assistant Mony relates that patient and family have never talked about advanced directive issues, indicating that this is something they try to avoid. Apparently, no history of POA paperwork or other documentation completed. Social Support: As above Living Situation: As above Palliative Performance Scale PPS Patient Status: Baseline PPS Ambulation: Mainly Sit/Lie (is able to ambulate for very short distances) PPS Activity: Unable to do any work PPS Self-Care: Full Self Care PPS Intake: Normal PPS Conscious Level: Full or confusion (increasingly forgetful) Performance Scale: 60% ADLs ADL Patient Status: Baseline ADL Ambulation: Mainly Sit/Lie ADL Dressing: Full ADL Feeding: Full ADL Hygene/bathing: Full ADL Transfers: Full FAST Scale FAST Score: 4 Allergy Allergies Reviewed: Yes Medications Current Medications: Current Medications Nitroglycerin 1 inch NOW TOPICAL Last administered on 02/26/17t 19:30; Admin Dose 1 INCH; Start 02/26/17 at 19:25 Al Hydrox/Mg Hydrox/Simethicone 30 ml Q6 PRN PO; Start 02/26/17 at 21:45; Stop 02/26/17 at 22:18; Status DC Ondansetron HCl Dose range: 4 mg to 8 mg Q4H PRN IVPUSH; Start 02/26/17 at 21: 45; Stop 02/26/17 at 22:18; Status DC Acetaminophen 975 mg Q6H PRN PO; Start 02/26/17 at 21:45; Stop 02/26/17 at 22: 18; Status DC Sodium Chloride 10 ml JEANMARIE IVFLUSH Last administered on 02/27/17 08:52; Admin Dose 10 ML; Start 02/27/17 at 00:30 Al Hydrox/Mg Hydrox/Simethicone 30 ml Q6 PRN PO; Start 02/26/17 at 22:00 Ondansetron HCl 4 mg Q4H PRN IVPUSH; Start 02/26/17 at 22:00 Senna 2 tablet BID PRN PO; Start 02/26/17 at 22:00 Polyethylene Glycol 17 gm DAILY PRN PO; Start 02/26/17 at 22:00 Acetaminophen 650 mg Q6H PRN PO; Start 02/26/17 at 22:00 Nitroglycerin 0.4 mg Q5MIN PRN SL; Start 02/26/17 at 22:00 Furosemide 40 mg DAILY IVPUSH Last administered on 02/27/17 08:42; Admin Dose 40 MG; Start 02/27/17 at 08:30; Stop 02/27/17 at 09:16; Status DC Albuterol 2.5 mg Q4H PRN NEB; Start 02/27/17 at 07:00 Alendronate Sodium 70 mg WEEKLY PO; Start 03/02/17 at 07:00 Allopurinol 300 mg DAILY PO Last administered on 02/27/17 08:50; Admin Dose 300 MG; Start 02/27/17 at 08:30 Aspirin 81 mg DAILY PO Last administered on 02/27/17 08:52; Admin Dose 81 MG; Start 02/27/17 at 08:30 Atorvastatin Calcium 40 mg HS PO Last administered on 02/26/17 23:10; Admin Dose 40 MG; Start 02/26/17 at 22:50 Carvedilol 6.25 mg BID PO Last administered on 02/27/17 08:51; Admin Dose 6.25 MG; Start 02/26/17 at 22:45 Acetaminophen/ Hydrocodone Bitart 1 tablet BID PRN PO Last administered on 02/26 23:11; Admin Dose 1 TABLET; Start 02/26/17 at 22:55 Amlodipine Besylate 10 mg DAILY PO Last administered on 02/27/17 08:50; Admin Dose 10 MG; Start 02/27/17 at 08:30 Meclizine HCl 12.5 mg TID PRN PO; Start 02/26/17 at 22:55 Pantoprazole 40 mg 0630 PO; Start 02/27/17 at 06:30; Stop 02/27/17 at 06:30; Status DC Losartan Potassium 100 mg HS PO Last administered on 02/26/17 23:52; Admin Dose 100 MG; Start 02/26/17 at 23:16 Zinc Oxide 1 applic BID PRN TOPICAL; Start 02/26/17 at 22:55 Pharmacy Consult 1 ea DAILY@17 XX; Start 02/27/17 at 17:00 Albuterol/ Ipratropium 3 ml Q6 NEB Last administered on 02/27/17 00:42; Admin Dose 3 ML; Start 02/27/17 at 02:30; Stop 02/27/17 at 08:42; Status DC Enoxaparin Sodium 80 mg Q12H SUBQ Last administered on 02/27/17 00:59; Admin Dose 80 MG; Start 02/27/17 at 00:45 Furosemide 40 mg BID IVPUSH; Start 02/27/17 at 20:30 Scheduled Alendronate Sodium (Fosamax) 70 Mg Tablet 70 MG PO WEEKLY THURSDAYS Allopurinol (Allopurinol) 300 Mg Tablet 300 MG PO DAILY Amlodipine (Amlodipine) 10 Mg Tablet 10 MG PO QAM Aspirin Chew (Aspirin Chew) 81 Mg Chew 81 MG PO QAM Atorvastatin (Lipitor) 40 Mg Tablet 40 MG PO HS Carvedilol (Carvedilol) 6.25 Mg Tablet 6.25 MG PO BID Furosemide (Lasix) 40 Mg Tablet 40 MG PO DAILY Omeprazole (Omeprazole) 40 Mg Capsule.dr 40 MG PO DAILY Valsartan (Valsartan) 320 Mg Tablet 320 MG PO HS Warfarin Sodium (Warfarin Sodium) 2.5 Mg Tablet 1.25 MG PO QPM Scheduled PRN Albuterol Neb Soln (Albuterol Neb Soln) 2.5 Mg/3 Ml Vial.neb 2.5 MG INHALATION Q4H PRN PRN For Shortness of Breath Hydrocodone-Acetaminophen 5-325 mg (Hydrocodone-Acetaminophen 5-325 mg) 1 Each Tablet 1 TABLET PO BID PRN PRN For Pain Meclizine (Bonine) 25 Mg Tab.chew 12.5 MG PO TID PRN PRN For Nausea/Vomiting Zinc Oxide (Zinc Oxide) 57 Gm Oint...g. 1 APPLIC TP BID PRN PRN RASH Objective Findings Exam Vital Sign - Last Date Time Temp Pulse Resp B/P Pulse Ox O2 Delivery O2 Flow Rate FiO2 02/27/17 08:53 36.4 10 142/75 97 Room Air 02/27/17 00:45 94 02/26/17 23:29 1.00 Intake and Output 02/26/17 02/26/17 02/27/17 Cumulative From/Thru 15:00 23:00 07:00 02/26/17 17:09 - 02/27/17 05:30 Output Total 400 ml 400 ml Balance -400 ml -400 ml Output Urine Total 400 ml 400 ml Objective Obese [place] woman sitting in Shanda chair. Modest tachypnea and wheezing audible. Vital signs noted. Skin is warm and dry. Head and neck exam remarkable for obesity. Lungs difficult to auscultate due to her bulk; heart sounds very distant and barely audible. Abdomen is obese, soft, without tenderness. Lower extremities with pitting edema at the ankles, +1 Lab/Diagnostics Lab and Imaging results reviewed in detail in EMR. Time spent Total time 85 minutes; >50% face to face with patient and family, providing counselling regarding plans and recommendations, and in care coordination with her medical teams. Of the above total time, 15 minutes counseling for advanced care planning with the patient and family members copies to: Lisa Iyer MD, David F MD Feb 27, 2017 11:57
[2017-02-27] MEDS ORDERED: Furosemide 10 mg/mL 4 mL Inj IVPUSH ONE (15:14)
--- NOTE | 2017-02-27 15:49 | PCM.CHPMED ---
Subjective Date of Service: Feb 27, 2017 Provider requesting consult: Jayshree Grimm DO Primary Physician: Admitting Physician: Jayshree Grimm DO Primary Care Physician: Lisa Iyer MD Attending Physician: Jayshree Grimm DO Chief Complaint: Chief Complaint: Dyspnea History of Present Illness: NEPHROLOGY CONSULTATION NOTE Patient is an 81 year old female with a history of CHF, CKD stage 3, a. fib, ALBER , type 2 DM, CAN, HTN and HLP. She presented to [facility] on 02/26/17 with worsening shortness of breath. Nephrology service consulted to help manage hyponatremia. History taken with the help of the patient's [id number] as the patient only speaks Tagalog. History somewhat limited as the sister in law is not her primary cake tester and no other family is present. Dyspnea has been increasing over the last few days and occurred with more apparent peripheral edema and some weight gain (about 7 pounds). Patient and family also report an increase in the amount of audible wheezing. Denies fever , chills, nausea, vomiting, diarrhea, abdominal pain, chest pain. Her appetite has been ok. She has been unable to really get comfortable since being admitted. Contusions noted on the face related to a fall that occurred on Monday or last week. Patient was last in the ED on 02/20/17 with similar symptoms. It was discovered that she was probably not taking her medications as previously prescribed. She had returned from a visit to the [facility] on 02/04/17 and had not been taking her medications for an unknown period of time. While in the [facility] the patient was hospitalized for what was believed to be a CHF exacerbation but we have no records of this. In the ED she was started up on her home medications again. A UTI was discovered on lab work up and she received 5 days of nitrofurantoin as well (culture showed Klebsiella sens to nitrofurantoin). The patient was sent home but decompensated again and returned to the ED. In the ED the patient's sodium was 112. On 02/20/17 it was 128. Fluid restriction and Lasix were started over night pending nephrology evaluation. Review of Systems: Constitutional: Denies: Chills, Fever Cardiovascular: Denies: Chest Pain, Palpitations Respiratory: Reports: SOB with Exertion, Shortness of Breath, Wheezing, Denies: Cough Gastrointestinal: Denies: Abdominal Pain, Change in Appetite, Constipation, Diarrhea, Nausea, Vomiting Genitourinary: Denies: Dysuria, Hematuria Neurological: Denies: Dizziness PMH Past Medical History Congestive heart failure (uncertain etiology) Chronic kidney disease stage III Coronary artery disease Chronic atrial fibrillation on warfarin Obstructive sleep apnea on CPAP Type 2 DM Hypertension Hyperlipidemia Gout GERD Surgical History Pacemaker placement 2011, Cardiac catheterization February 2008 Home Medications Albuterol nebulizer Alendronate Allopurinol 300 mg daily Amlodipine 10 mg daily Aspirin 81 mg daily Atorvastatin 40 mg HS Carvedilol 6.25 mg BID Lasix 40 mg daily [employer] 5/325 mg Q6 PRN Meclizine 12.5 mg PRN Omeprazole 40 mg daily Valsartan 320 mg daily Warfarin 2.5 mg daily Topical zinc oxide PRN Allergies: Coded Allergies: No Known Allergies (Verified Allergy, Unknown, 02/20/17) Family History Family History Both parents from myocardial infarction Social History Hx Alcohol Use: NoHx Substance Use: NoHx Tobacco Use: No Smoking Status: Never Smoker Living Arrangement: with Family Exam Vital Signs Vital Sign - Last Date Time Temp Pulse Resp B/P Pulse Ox O2 Delivery O2 Flow Rate FiO2 02/27/17 13:01 72 02/27/17 12:30 20 99 Room Air 02/27/17 12:19 36.9 120/77 02/26/17 23:29 1.00 Intake and Output 02/26/17 02/26/17 02/27/17 Cumulative From/Thru 15:00 23:00 07:00 02/26/17 17:09 - 02/27/17 05:30 Output Total 400 ml 400 ml Balance -400 ml -400 ml Output Urine Total 400 ml 400 ml General: Alert, Oriented X3, Cooperative, No Acute Distress Head: Normal, Other (Ecchymosis to right chin) Eyes: PERRLA, EOMI, Scleral Anicteric Neck: Other (No JVD) Chest & Lungs: Expiratory wheezes Cardiovascular: Regular Rate/Rhythm, No Murmurs/Rubs/Gallops Pulses: Radial (Present and equal bilaterally), Dorsalis Pedis (difficult to appreciate bilaterally) Abdomen: Non-tender, Normoactive bowel tones Genitourinary: Bailey Absent Extremities: Edema (Moderate pitting up to the knee bilaterally) Neurological: Grossly Neurologically Intact, Cranial Nerves 2-12 Intact, Normal Speech Lab and Diagnostics Result Diagram: 02/27/17 0430 02/27/17 1320 Assessment & Plan Assessment Patient is an 81 year old [place] woman with a history of CKD stage 3, CAD, HTN , DM2. She presented to [facility] with worsening dyspnea. Admitted for management of fluid overload and hyponatremia. Nephrology consulted to assist with hyponatremia. Hospital day #1. 1) Hyponatremia, chronic, presumed onset over 48 hrs. - Na level 128 on 02/20/17. - Likely secondary to salt and water retention. - Tolvaptan given one time for free water fluid removal. - Continue to monitor sodium Q4H overnight. 2) Fluid overload. - Continue Lasix 40 mg IV BID. - One dose of tolvaptan given. Will re-evaluate tomorrow AM. - Continue PO fluid restriction on 1L. - Recommend low salt diet after discharge. - Standing weights. - Strict I&O's. 3) CKD stage 3, stable. - Continue to monitor BMP. - Avoid nephrotoxic medications when possible. 4) Recent UTI with leukocytosis seen on UA. - Received 5 day course of nitrofurantoin. - Patient asymptomatic currently. - Will await culture data prior to antibiotic administration. Thank you Dr. Grimm and Dr. Monk for this interesting consultation. We will continue to follow along closely at this time. Patient was seen and examined. Case discussed with resident. Agreed with assessment and plan as above. Dx. Chronic hyponatremia, unknown onset, probably over 48 hr. - Hypervolemia per exam. - ? underlying disease of diastolic CHF. Plan: Fluid restriction 1L per day, continue IV lasix. Low salt diet, 2g Na per day. Give one dose of tolvaptan to enhance free water excretion. Repeat Echo. Order US abd given mildly elevated ALT and TB. Check TSH and cortisol level. Thank you for allowing me to participate in the care of your patient. Shree Portillo MD Pg [phone] Problems: Pain Evaluation: Adequate Pain Control GI Prophylaxis: Proton Pump Inhibitor VTE Prophylaxis: Theraputic Anticoag with Warfarin Resuscitation Status: CPR: Attempt Resuscitation Carlie Feng DO Feb 27, 2017 15:49 Toni Taylor MD Feb 27, 2017 18:58
[2017-02-27] MEDS: Albuterol 2.5 mg/3 mL Inhalation Solution NEB PRN ×2 (15:52→21:44)
--- NOTE | 2017-02-27 17:05 | DRSVH ---
PROCEDURE: US ABDOMEN INDICATIONS: abnormal LFTs TECHNIQUE: Real-time scanning was performed of the abdominal and retroperitoneal organs, with image documentatio n. COMPARISON: [facility], US, US ABDOMEN, 12/08/2015, 8:35. FINDINGS: Liver length: 16.50 cm Gallbladder Wall Thickness: Spleen length: 7.52 cm Right kidney length: 11.05 cm Left kidney length: 9.61 cm Aorta(Proximal): 2.43 cm Aorta(Mid): 2.16 cm Liver: Liver is diffusely increased in echogenicity. No focal hepatic abnormalities identified. No rmal hepatic size. Gallbladder: Gallbladder is contracted as the patient is not n.p.o. Biliary ducts: Intrahepatic bile ducts are non-dilated. Extrahepatic bile duct not well-seen. Pancreas: Visualized portions of the pancreas are sonographically normal. Spleen: Spleen is normal in size and homogeneous in echotexture. Kidneys: Kidneys are normal in size and echotexture. No hydronephrosis or nephrolithiasis. No alanis d masses. Aorta: Visualized aorta is normal in caliber at less than 3 cm. Iliacs: Proximal common iliac arteries are normal in caliber at less than 2.5 cm. IVC: Intrahepatic inferior vena cava is patent. Miscellaneous: No free abdominal fluid. IMPRESSION: 1. Increased hepatic echogenicity noted likely related to fatty infiltration of the liver but other s ources of hepatocellular disease cannot be excluded. Recommend clinical correlation. 2. Patient is not n.p.o. and the gallbladder is contracted. If indicated repeat limited gallbladder ultrasound could be performed. Dictated by: Ned GALVIN Interpreted: Mila Sr MD on 02/27/2017 at 17:03 Transcribed by: TOM on 02/27/2017 at 17:04 Approved by: Mila Sr M.D. on 02/27/2017 at 17:12
--- NOTE | 2017-02-27 19:56 | NUR ---
General status Pt answered questions appropriately via her family or field agent translating. Pt seems able to make her needs known. Family states she is confused much of the time however. Pt V-Paced in the 70s. Edema to the lower extremities. Lungs wheezy. Neds PRN added to POC. Pt voided 630cc in the BSC. PVC=O per STEAMTABLE WORKER. MD order to insert contreras cath for scan >400cc. Pt stated some leg spasms 2/10 discomfort throughout the day but did not want any medication. Pt had her CPAP in the room this evening and family states she is planning to use it tonight.
[2017-02-27] MEDS: Furosemide 10 mg/mL 4 mL Inj IVPUSH SCH (20:41)
--- NOTE | 2017-02-27 22:20 | CONS ---
[address] [address] CONSULTATION REPORT PATIENT: GERSON VELASCO : 1935 MR#: [id number] ADMIT: 02/26/2017 JOB ID: [id number] DATE OF SERVICE: 02/27/2017 CHIEF COMPLAINT: I was asked by the hospital team to consult on this patient given admission with increased shortness of breath and findings on chest x-ray concerning for pulmonary edema. HISTORY OF PRESENT ILLNESS: The patient is an 81-year-old woman who has a history of treatment for heart failure just about six days prior to this admission. Apparently she was sent home after that treatment. 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 She is anticoagulated for atrial fibrillation. Apparently, she was treated in the [facility] about two months ago with a similar presentation, for which she was treated with a nebulizer which apparently improved her situation. With the current admission, she came in with increased shortness of breath which got worse. She was apparently wheezing per her family members. She does not feel comfortable lying flat but I do not know if she truly has orthopnea or PND. She has had some increased lower extremity edema. PAST MEDICAL HISTORY/PROBLEM LIST: 1. Hypertension. 2. Paroxysmal atrial fibrillation with pacemaker placement for tachybrady syndrome. HOME MEDICATIONS: Include: 1. Allopurinol 3 mg daily. 2. Amlodipine 10 mg daily. 3. Aspirin 81 mg a day. 4. Lipitor 40 mg q.h.s. 5. Carvedilol 6.25 b.i.d. 6. Furosemide 40 mg daily. 7. Omeprazole. 8. Valsartan. 9. Warfarin. ALLERGIES: No known drug allergies. SOCIAL HISTORY: No tobacco, no alcohol use. FAMILY HISTORY: No early coronary disease. Brother had CHF. REVIEW OF SYSTEMS: Overall health: No fevers, chills, night sweats, or weight loss. GI: No problems with ulcers, blood in her stool. : Has some chronic renal disease. No hematuria. Pulmonary: Increased shortness of breath, but no lung disease. Endocrine: No heat or cold intolerance. Heme: No easy bruising or bleeding. Musculoskeletal: No acute joint issues. Neuro: No chronic headaches. Cardiac: As per HPI. ENT: No difficulty swallowing, difficulty hearing. Ophtho: No acute vision issues. Psych: No acute issues. All review of systems on 12 point review of system are negative. PHYSICAL EXAMINATION: Blood pressure is 120/77. She is afebrile. Sats are 99% on room air. General: In no acute distress. Speaking in full sentences without apparent shortness of breath. She is somewhat sleepy, however, during the interview. Head and neck exam: Normocephalic, atraumatic. Neck: Do not appreciate obvious JV distention but somewhat difficult. Carotids: No obvious bruits appreciated. Heart exam: Heart rate occasionally irregular without obvious murmurs, gallops, rubs appreciated. Lungs: Clear anteriorly. Back: No obvious CVA tenderness to palpation. Abdomen is soft. Extremities: Warm. Possible trace edema. Skin without breakdown appreciated. Neuro: She is sleepy, but wakes up and interacts. Gait is not tested. Psych: Appropriate mood and affect. HEENT: Mucous membranes moist. Ophtho: Vision grossly intact. CURRENT MEDICATIONS: Include: 1. Albuterol. 2. Lovenox 80 b.i.d. 3. Aspirin 81 mg a day. 4. Carvedilol 6.25 b.i.d. 5. Losartan 100 mg q.h.s. 6. Lipitor 40 q.h.s. 7. Warfarin. 8. Furosemide 40 b.i.d. IV. 9. Meclizine. 10. Other p.r.n. medications. 11. She has also been given a dose of tolvaptan given hyponatremia. LABORATORIES: Show a white count of 11.2, H and H 10.8 and 30.5, platelets of 183,000. Chemistry shows sodium which is persistently low in the 111 to 112 range. Chloride is also low at 77. BUN and creatinine 26 and 0.94. Glucose 140. Totally bilirubin is up at 1.9. AST is up at 51. Troponins all negative. ProBNP 2892. IMAGING: Shows a chest x-ray that shows mild pulmonary edema. Other studies have shown an echocardiogram read in 2014 that showed normal LV systolic function. No significant valve disease. An echocardiogram has been ordered and will be pending. IMPRESSION: The patient has had more recent problems with increased shortness of breath. She has been treated with nebs when in the [facility]. She has been diagnosed with heart failure with this admission. It is somewhat difficult to get a story about whether she has orthopnea or paroxysmal nocturnal dyspnea. She is getting diuresed with this admission. She has a low sodium. PLAN: 1. She has negative troponins and denies chest pain or chest pressure. I think we need to figure out why she is going into a heart failure, especially when she had a history of normal left ventricular systolic function. This may be related to arrhythmias, may be related to pacing modes, may be related to ischemia, although the negative troponins are reassuring. May also be related to high blood pressure, although her blood pressures do not appear that high this admission. We will get a repeat echocardiogram to make sure her LV systolic function is stable. Will get her pacemaker interrogated to see if there is anything that is changed in the past several months to explain a problem with increased shortness of breath. 2. Regarding the sodium, although I have seen low sodiums with heart failure, this one seems a little bit lower than I am used to dealing with, and fortunately, we have the renal service to help us. I spent 40 minutes reviewing the patient's records, interviewing and examining the patient and discussing concerns with the family. ANANDA
[2017-02-28] VITALS (10 sets, daily range): BP systolic 91–138; BP diastolic 61–78; PULSE 65–73; RESP 18–20; O2SAT 97–99
[2017-02-28 03:27] LABS: APPEARANCE,URINE HAZY (CLEAR,HAZY); COLOR,URINE STRAW (YELLOW); OCCULT BLOOD,URINE SMALL (NEGATIVE); UROBILINOGEN,URINE NORMAL (NORMAL)
[2017-02-28 03:46] LABS: BASOPHILS % (AUTO) 0.4 % (0-3); EOSINOPHILS % (AUTO) 1.8 % (0-5); MONOCYTES % (AUTO) 16.3 % (4-12); Mean Corpuscular Hemoglobin 29.6 pg (27.0-35.0); Mean Corpuscular Volume 85.5 fL (81-100); NEUTROPHILS % (AUTO) 57.6 % (40-74); Platelet Count 193 bil/L (150-400)
--- NOTE | 2017-02-28 04:39 | NUR ---
Post-Void Residual Pt voided at HS; PVR obtained after pt utilized BSC, approx. 208mls found in bladder - no contreras catheter indicated. Pt alert to self, difficult to direct, able to verbalize needs. Tele V-paced 70s. VSS. Random UA sent this AM.
[2017-02-28] MEDS: Albuterol 2.5 mg/3 mL Inhalation Solution NEB PRN (07:47)
[2017-02-28] MEDS ORDERED: Pantoprazole 4 mg/mL 10 mL Inj IVPUSH SCH (08:00)
[2017-02-28] MEDS: Furosemide 10 mg/mL 4 mL Inj IVPUSH SCH (08:44)
[2017-02-28] MEDS: Sodium Chloride LOK Flush 10 mL Syringe IVFLUSH SCH ×3 (08:45→19:30)
[2017-02-28 09:12] LABS: INR 1.85 ratio
--- NOTE | 2017-02-28 11:39 | DRSVH ---
PROCEDURE: US VENOUS LEG DUPLEX BILATERAL INDICATIONS: LE swelling TECHNIQUE: Real-time imaging, as well as color and pulse Doppler interrogation, were performed of the deep veins of both legs from the inguinal ligament to the popliteal fossa. COMPARISON: None. FINDINGS: The deep veins are normally compressible, and free of intraluminal thrombus. Color and pu lse Doppler demonstrate normal phasic intravascular flow. There is normal augmentation response to d istal compression maneuver. IMPRESSION: 1. No evidence of deep venous thrombosis in the right or left lower extremity. Dictated by: Marcos Rider M.D. on 02/28/2017 at 11:36 Approved by: Marcos Rider M.D. on 02/28/2017 at 11:36
--- NOTE | 2017-02-28 11:51 | PCM.PNMED ---
Subjective Date of Service Feb 28, 2017 Subjective NEPHROLOGY PROGRESS NOTE Patient seems to be improved today. Her son is available to translate. He notes that she seems less swollen and with less wheezing. They are curious to know when she can go home. Exam Vital Signs Vital Sign - Last Date Time Temp Pulse Resp B/P Pulse Ox O2 Delivery O2 Flow Rate FiO2 02/28/17 11:29 70 02/28/17 08:40 36.8 18 138/61 98 Room Air 02/27/17 23:50 0.00 Intake and Output 02/27/17 02/27/17 02/28/17 Cumulative From/Thru 15:00 23:00 07:00 02/26/17 17:09 - 02/28/17 06:33 Intake Total 400 ml 175 ml 400 ml 975 ml Output Total 190 ml 630 ml 2500 ml 3720 ml Balance 210 ml -455 ml -2100 ml -2745 ml Intake Oral 400 ml 175 ml 400 ml 975 ml Output Urine Total 190 ml 630 ml 2500 ml 3720 ml # Voids 4 4 Exam General: Alert, Oriented X3, Cooperative, No Acute Distress Head: Normal, Ecchymosis to right chin Eyes: PERRLA, EOMI, Scleral Anicteric Neck: No JVD Chest & Lungs: Expiratory wheezes improved from exam yesterday Cardiovascular: Regular Rate/Rhythm, No Murmurs/Rubs/Gallops Pulses: Radial (Present and equal bilaterally), Dorsalis Pedis (difficult to appreciate bilaterally) Abdomen: Non-tender, Normoactive bowel tones Genitourinary: Bailey Absent Extremities: Trace edema noted bilaterally at the ankles Neurological: Grossly Neurologically Intact, Cranial Nerves 2-12 Intact, Normal Speech IVs and Medications Medications Reviewed: Medications were reviewed in detail Lab and Diagnostics Result Diagram: 02/28/17 03302/28/17 033 Assessment & Plan Patient is an 81 year old [place] woman with a history of CKD stage 3, CAD, HTN , DM2. She presented to [facility] with worsening dyspnea. Admitted for management of fluid overload and hyponatremia. Nephrology consulted to assist with hyponatremia. Hospital day #2. 1) Hyponatremia, likely chronic, presumed onset over 48 hrs. - Na level 128 on 02/20/17. - Hypervolemic on initial exam. Likely secondary to salt and water retention. - Tolvaptan given one time for free water excretion with good result. Will not give an additional dose. - Continue to monitor sodium TID. 2) Fluid overload. - Continue Lasix 40 mg IV BID. - Continue PO fluid restriction on 1L. - Recommend low salt diet (2 gm daily). - Standing weights. - Strict I&O's. - Lower extremity doppler ordered and pending. 3) CKD stage 3, stable. - Continue to monitor BMP. - Avoid nephrotoxic medications when possible. 4) Recent UTI with leukocytosis seen on UA x2. - Received 5 day course of nitrofurantoin. - Patient asymptomatic currently. - Will await culture data prior to antibiotic administration. 5) Possible diastolic CHF. - Awaiting echocardiogram results. Thank you for this interesting consultation. We will continue to follow along closely at this time. Patient was seen and examined. Case discussed with a resident. Agreed with assessment and plan as above. Shree Portillo MD Pg [phone] GI Prophylaxis: Proton Pump Inhibitor VTE Prophylaxis: Theraputic Anticoag with Warfarin Resuscitation Status: CPR: Attempt Resuscitation Carlie Feng DO Feb 28, 2017 11:51 Toni Taylor MD Feb 28, 2017 16:37
--- NOTE | 2017-02-28 12:08 | DRSVH ---
PROCEDURE: X-RAY CHEST ONE VIEW, PORTABLE ([id number]) INDICATIONS: CHF TECHNIQUE: One view of the chest was acquired. COMPARISON: [facility], CR, XR CHEST 1VW (PORTABLE), 02/26/2017, 17:31. FINDINGS: Surgical changes and devices: No change in positioning of dual chamber left cardiac pacer. Lungs and pleura: No pleural effusions or pneumothorax. Lungs are clear, interstitium is mildly pro minent. Mediastinum: Mediastinal contours appear normal. Heart size is enlarged. Bones and chest wall: No suspicious bony lesions. Overlying soft tissues appear unremarkable. IMPRESSION: Cardiomegaly , and mild interstitial prominence similar to previous examination. Minimal edema cannot be excluded. Dictated by: Ned Coronado [facility] Interpreted: Moe Regan MD on 02/28/2017 at 11:20 Approved by: Moe Regan M.D. on 02/28/2017 at 12:06
--- NOTE | 2017-02-28 12:49 | DRSVH ---
[facility] [address] [place] [address] Echocardiogram Report Name: GERSON VELASCO CStudy Date : 02/28/2017 Height: 59 in Hospital Exam Location: [facility] Weight: 17 7 lb Gender: Female BSA: 1.8 m2 : 1935 Age: 81 yrs BP: 126/74 mmHg Reason For Study: Congestive Heart Failure Ordering Physician: HOSPITALIST [facility] Performed By: Corry Gracia Referring Physician: Dr Lisa Iyer Interpretation Summary 1. Normal left ventricular size, wall thickness and systolic function and an estimated EF of 60-65% 2. Upper limits of normal right ventricular size with low normal systolic function. Estimated RVSP is 37 mm Hg 3. Evidence for severe tricuspid regurgitation. The estimated right atrial pressure is elevated. Compared to the previous study of 03/24/15 (which was limited in nature), the tricuspid regurgitation has now worsened. Procedure: A two-dimensional transthoracic echocardiogram with color flow and Doppler was performed. The study quality was technically adequate. Comparison is made with the echocardiogram of 03-24-15. The patient has a paced rhythm. Left Ventricle: The left ventricle is normal in size. There is normal left ventricular wall thickness. The ejection fraction is estimated to be 60-65%. There are no obvious focal wall motion abnormalities noted but poor endocardial definition reduces the sensitivity for the detection of such. Diastolic function could not be accurately assessed due to paced rhythm. Right Ventricle: There is a pacemaker lead in the right ventricle. The right ventricle is borderline dilated. Right ventricular systolic function is at the lower limits of normal. Atria: The left atrium is mildly dilated. The right atrium is mildly dilated. The interatrial septum is intact with no evidence for an atrial septal defect. Mitral Valve: The mitral valve is grossly normal. There is moderate mitral regurgitation. Aortic Valve: The aortic valve is trileaflet. The aortic valve opens well. No aortic regurgitation is present. Tricuspid Valve: The tricuspid valve leaflets are thin and pliable. There is severe tricuspid regurgitation. The right ventricular systolic pressure is estimated at 37 mmHg assuming a right atrial pressure of 3 mm Hg. Pulmonic Valve: The pulmonic valve is not well visualized. There is no pulmonic valvular regurgitation. Great Vessels: The aortic root is normal size. The dimensions of the ascending aorta are normal. The IVC is dilated (diameter is greater than 2.1 cm) and it collapses less than 50% with a sniff. This suggests a high right atrial pressure of 15 mm Hg. Pericardium/ Pleura There is a trivial pericardial effusion noted. There is no pleural effusion. MMode/2D Measurements & Calculations LVIDd: 4.9 cm LA dimension: 4.7 cm RA long axis Ao root diam LVIDs: 2.8 cm FS: 43.3 % LA A2 area: 20.9 cm RA area Aortic Jxn IVSd: 0.91 cm LA A4 area: 22.7 cm LVPWd: 0.81 cm LA length (vol): 5.6 cm : 22.3 cm asc Aorta LA vol: 72.0 ml RA vol: 70.1 mlDiam: 3.1 cm LA vol index RA : 40.1 mm/ RVDd major IVC diam: 2.0 cm : 5.1 cm LV couch. diameter/BSA LV sys. diameter/BSA RVD1 (basal) RVD2 (mid) (cm/m^2): 2.8 (cm/m^2): 1.6 : 2.9 cm Doppler Measurements & Calculations Ao V2 max MV P1/2t: 69.8 msec Med Peak E' Ismael TR max ismael : 129.6 cm/sec MR ERO: 0.32 cm2 : 293.1 cm/sec Ao max PG Lat Peak E' Ismael TR max PG : 6.7 mmHg : 34.4 mmHg Ao mean PG PA V2 max : 2.7 mmHg : 76.6 cm/sec PA mean PG : 0.98 mmHg PA Accel Time : 0.14 sec MV V2 mean MV P1/2t max ismael Ao V2 mean MR flow rate : 44.8 cm/sec : 72.0 cm/sec : 142.0 cm3/sec MV mean PG MVA(P1/2t): 3.2 cm2 Ao V2 VTI: 24.8 cm MR PISA radius MV V2 VTI : 26.6 cm PA V2 mean : 43.9 cm/sec Reading Physician:12:48 PM
--- NOTE | 2017-02-28 12:58 | PCM.PALLBR ---
Palliative Care Recommendation 81-year-old female with history of diastolic CHF, chronic atrial fibrillation on anticoagulation, ALBER on chronic CPAP, stage III CRF, etc., who presented with severe hyponatremia and complaints of progressive dyspnea. Per family, was hospitalized with similar complaints in the [facility] several months ago when they were told she had congestive heart failure. Palliative medicine consulted to assist patient and family with determination of goals of care. Summary of palliative recommendations: -Symptom management (Pain/other)- management of CHF/pulmonary edema with usual diuretics/carvedilol/ARB/etc. Nephrology following. Additional management per medical/natural remedy consultant teams. -DPOA/Advanced Directives/POLST- per family, no documentation previously completed. Lives with her son Darrius (currently out of town commercial fishing) and his Tamia- samiraece Mony that I spoke with yesterday indicated family feels it makes most sense that Darrius and Tamia act as POA. Family has never discussed advanced directive issues with the patient- they have been reluctant/avoiding doing so, but yesterday Mony said that they are all beginning to realize this would be something important to undertake, and will begin having these conversations amongst themselves over the next several days. At this time, they wish patient to remain full code. Palliative medicine will continue to follow and encourage/support these conversations Plan on assisting them in completing a POLST prior to discharge -Family/emotional support- excellent support from family members and friends as outlined Additional Medical Diagnoses with primary management by Hospitalist team include : # Acute on chronic diastolic heart failure and pulmonary edema and elevated BNP. , present on admission, treatment ongoing # Acute hypovolemic hyponatremia, present on admission, treatment initiated # Gastroesophageal reflux disease, present on admission # Essential hypertension, controlled, present on admission # Obstructive sleep apnea on CPAP, present on admission # Paroxysmal atrial fibrillation, not present on admission, status post pacemaker placement, on anticoagulation. Stable # Chronic kidney disease, stage III, present on admission, stable. Problems: End of Life Preferences Remains full code at this time Goals of Care Recovery/stabilization and able to return home to live with her son and daughter -in-law Disposition To be determined Resuscitation Status Resuscitation Status: CPR: Attempt Resuscitation POLST Updates/Changes Previous POLST?: No . Pain: None Symptom management: Dyspnea Total time 25 minutes; >50% face to face with patient and family, providing counselling regarding plans and recommendations, and in care coordination with her medical teams. Palliative Brief Note Date of Service Feb 28, 2017 . Returned to reevaluate patient. Prior to visiting, reviewed her updated records in the EMR in detail. Multiple family members in the room today but all young- neither of her primary contact, Mony or Tamia, are present. Patient is awake and alert. She is much more interactive today- cracking jokes and teasing her family (so they tell me- all conversation is in Tagolog). She was sitting up in bed. Appears to be breathing more easily but still has some mild expiratory wheezing. Intake/output improved- diuresing. Vital signs noted. Skin is warm and dry. Lungs with expiratory wheezing is noted but better air movement and fewer crackles. Heart sounds distant. Abdomen obese but benign. Lower extremities with no pitting edema and show some post edematous wrinkling. Family is encouraged by how much better the legs look too. Sodium 119 with recheck pending. Other labs stable. Lower extremity venous Dopplers negative for clot. Echocardiogram pending. Mingo Arias MD Feb 28, 2017 12:58
--- NOTE | 2017-02-28 14:47 | NUR ---
HEMA signed by pt's son
--- NOTE | 2017-02-28 16:08 | NUR ---
Social Work: Attempted Assessment D: EMR reviewed. Pt is on day 2 of hospitalization. SW met with pt and son at bedside to conduct initial assessment. Pt and son's primary language is Tagalog. SW communicated with pt's son using the interpretor stick. SW work with plating technician by the name of Lindsay (ID# [id number]). SW confirmed that pt has dementia at baseline and is not an accurate historian at this time. Pt's son's name is Maddy Mccann. Pt's son asked SW to contact pt's daughter Nataliya Mccann ([phone]) or daughter Anila Mccann ([phone]) who speak Sinhala and have a better understanding of pt's baseline. Pt's son lives in [place] and is only in town for a short time. Pt lives at home in [facility] [place] with Anila and Nataliya Mccann. A: Pt who is independent at baseline P: Per pt's son, SW to contact pt's daughters Nataliya Mccann ([phone]) or Anila Mccann ([phone]) who speak Sinhala and have a better understanding of pt's baseline. SANDY Ch
[2017-02-28] MEDS: Pantoprazole 40 mg ER24 Tablet PO SCH (17:00)
--- NOTE | 2017-02-28 17:02 | PCM.PNMED ---
Subjective Date of Service Feb 28, 2017 Subjective 81-year-old female with chronic, chronic atrial fibrillation on anticoagulation , ALBER on chronic CPAP, stage III CKD, presents with hyponatremia and dyspnea. The patient remains arousable but sleepy. Denies specific complaints. Family friends at bedside feel she is clinically improved today. Exam Vital Signs Vital Sign - Last Date Time Temp Pulse Resp B/P Pulse Ox O2 Delivery O2 Flow Rate FiO2 02/28/17 12:03 110/67 02/28/17 11:51 36.5 65 18 98 02/28/17 08:40 Room Air 02/27/17 23:50 0.00 Intake and Output 02/27/17 02/27/17 02/28/17 Cumulative From/Thru 15:00 23:00 07:00 02/26/17 17:09 - 02/28/17 06:33 Intake Total 400 ml 175 ml 400 ml 975 ml Output Total 190 ml 630 ml 2500 ml 3720 ml Balance 210 ml -455 ml -2100 ml -2745 ml Intake Oral 400 ml 175 ml 400 ml 975 ml Output Urine Total 190 ml 630 ml 2500 ml 3720 ml # Voids 4 4 Exam General: Centrally obese, no acute distress HEENT: Ecchymosis on right cheek, sclerae anicteric, oral mucosa moist Neck: Difficult to assess JVD Chest: clear to auscultation Cardiac: S1S2, no murmur appreciated Abdomen: BS normal, non-tender Extremities: No edema Neuro: Arouses to voice but not conversant, cranial nerves symmetric, motor strength and coordination for called to assess IVs and Medications Medications Reviewed: Medications were reviewed in detail Lab and Diagnostics Result Diagram: 02/28/17 0330 02/28/17 1208 X-Rays, CTs and MRIs PROCEDURE: X-RAY CHEST ONE VIEW, PORTABLE ([id number]) IMPRESSION: Cardiomegaly , and mild interstitial prominence similar to previous examination. Minimal edema cannot be excluded. Dictated by: Ned GALVIN Interpreted: Moe Regan MD on 02/28/2017 at 11:20 PROCEDURE: X-RAY CHEST ONE VIEW, PORTABLE ([id number]) IMPRESSION: 1. Mild pulmonary edema and cardiomegaly suggesting congestive heart failure. Dictated by: Marcos Rider M.D. on 02/26/2017 at 18:02 PROCEDURE: US ABDOMEN IMPRESSION: 1. Increased hepatic echogenicity noted likely related to fatty infiltration of the liver but other sources of hepatocellular disease cannot be excluded. Recommend clinical correlation. 2. Patient is not n.p.o. and the gallbladder is contracted. If indicated repeat limited gallbladder ultrasound could be performed. Dictated by: Ned GALVIN Interpreted: Mila Sr MD on 02/27/2017 at 17: 03 PROCEDURE: US VENOUS LEG DUPLEX BILATERAL IMPRESSION: 1. No evidence of deep venous thrombosis in the right or left lower extremity. Dictated by: Marcos Rider M.D. on 02/28/2017 at 11:36 . Assessment & Plan Patient is an 81 year oldwoman with a history of CKD stage 3, CAD, HTN, DM2. She presented to [facility] with worsening dyspnea. Admitted for management of fluid overload and hyponatremia. Nephrology consulted to assist with hyponatremia. Hospital day #2. #) Hyponatremia, acute on chronic, presumed onset over 48 hrs. Na level 128 on prior to this admission, 137 on 09/30/16. Urine osmolality of 300 on admission is ambiguous. Urine specific gravity is generally low. Picture is not consistent with SIADH or CHF related hyponatremia. Degree of hyponatremia seems disproportionate to her rather mild CHF. - Nephrology consulted and following - Continue free water restriction. - Correction goal 0.5 mEq per hour maximum 10 mEq per day - Repeat urine osmolality ordered - BMP in a.m. #) Chronic diastolic CHF. This is most likely right-sided heart failure related to her ALBER and tricuspid regurg. ProBNP was 2710 on admission. No ambulatory BNP values in next GEN HR. Chest x-ray was read as showing mild pulmonary edema but she has had O2 sats 97-100% on room air. Chest x-ray seems unimpressive and echocardiogram does not suggest impaired LVEF. - Continue PO fluid restriction on 1L. - Hold diuretic in a.m. - Cardiology consult #) CKD stage 3a with proteinuria, stable. Recent outpatient serum creatinine 1.01. Creatinine is now rising with aggressive diuresis. - Repeat BMP in a.m. #) Subclinical hypothyroidism. Ambulatory thyroid function tests in 2016 were normal. Current TSH of 5 seems trivial, but should have hypothyroidism obviously complicates diagnosis of hyponatremia. - Repeat thyroid function tests in a.m. #) Pyuria, present on admission. History of Recent UTI. - Await urinary culture results #) ALBER - Continue home CPAP GI Prophylaxis: Not indicated VTE Prophylaxis: Sub-Q Enoxaparin, Theraputic Anticoag with Warfarin Resuscitation Status: CPR: Attempt Resuscitation Time spent 40 minutes Homero Yao MD Feb 28, 2017 17:02 Homero Yao MD Feb 28, 2017 17:02
--- NOTE | 2017-02-28 17:29 | NUR ---
Bleeding Patient on sub q lovenox, oozing noted from injection sites on multiple areas of abdomen. aware.
[2017-03-01] VITALS (8 sets, daily range): BP systolic 90–128; BP diastolic 54–80; PULSE 70–74; RESP 18–20; O2SAT 97–99
[2017-03-01 03:27] LABS: INR 1.95 ratio
--- NOTE | 2017-03-01 05:25 | NUR ---
Sanguineous Drainage Throughout shift, pt has ongoing sanguineous weeping from bruises that require multiple dressing changes and linen changes. paged, no orders received. Pt sleeping this HS; VSS, tele V-paced 70s.
[2017-03-01] MEDS ORDERED: Potassium Chloride Oral 20 mEq SR Tab(K 3 - 3.7 & Creat < 2) PO ONE (06:35)
[2017-03-01] MEDS: Sodium Chloride LOK Flush 10 mL Syringe IVFLUSH SCH ×3 (09:16→21:27)
[2017-03-01] MEDS: Pantoprazole 40 mg ER24 Tablet PO SCH ×2 (09:16→18:50)
[2017-03-01] MEDS: Potassium Chloride 20 mEq SR Tablet PO SCH ×2 (09:16→18:50)
--- NOTE | 2017-03-01 11:49 | PCM.PNMED ---
Subjective Date of Service Mar 01, 2017 Subjective NEPHROLOGY PROGRESS NOTE Patient is feeling better in that she is no longer having dyspnea and edema. This morning she is having more left knee pain. Exam Vital Signs Vital Sign - Last Date Time Temp Pulse Resp B/P Pulse Ox O2 Delivery O2 Flow Rate FiO2 03/01/17 09:13 36.8 71 18 119/55 99 Room Air 02/27/17 23:50 0.00 Intake and Output 02/28/17 02/28/17 03/01/17 Cumulative From/Thru 15:00 23:00 07:00 02/26/17 17:09 - 03/01/17 06:39 Intake Total 700 ml 500 ml 2175 ml Output Total 3300 ml 1450 ml 8470 ml Balance -2600 ml -950 ml -6295 ml Intake Oral 700 ml 500 ml 2175 ml Output Urine Total 3300 ml 1450 ml 8470 ml # Voids 4 Exam General: Alert, Oriented X3, Cooperative, No Acute Distress Head: Normal, Ecchymosis to right chin Eyes: PERRLA, EOMI, Scleral Anicteric Neck: No appreciable JVD Chest & Lungs: CTAB, no adventitious lung sounds Cardiovascular: Regular Rate/Rhythm, No Murmurs/Rubs/Gallops Pulses: Radial (Present and equal bilaterally), Dorsalis Pedis (difficult to appreciate bilaterally) Abdomen: Non-tender, Normoactive bowel tones Genitourinary: Bailey Absent Extremities: No edema; left knee tenderness on palpation Neurological: Grossly Neurologically Intact, Cranial Nerves 2-12 Intact, Normal Speech IVs and Medications Medications Reviewed: Medications were reviewed in detail Lab and Diagnostics Result Diagram: 02/28/17 0330 03/01/17 0300 Assessment & Plan Patient is an 81 year old [place] woman with a history of CKD stage 3, CAD, HTN , DM2. She presented to [facility] with worsening dyspnea. Admitted for management of fluid overload and hyponatremia. Nephrology consulted to assist with hyponatremia. Hospital day #3. 1) Hyponatremia, likely chronic, presumed onset over 48 hrs. Improving. - Na level 128 on 02/20/17. - Hypervolemic on initial exam. Likely secondary to salt and water retention. - Continue to monitor BMP. - At time of discharge will need close follow up with outpatient labs. 2) Fluid overload. Improved. - Stop IV Lasix. Will transition to PO 40 mg BID. - Continue PO fluid restriction on 1L. - Recommend low salt diet (2 gm daily). - Standing weights. - Strict I&O's. 3) CKD stage 3, stable. - Continue to monitor BMP. - Avoid nephrotoxic medications when possible. 4) Recent UTI with pyuria seen on UA x2. - Received 5 day course of nitrofurantoin. - Patient asymptomatic currently. - Culture data negative so far. Will defer to primary team concerning antibiotics or lack thereof. 5) Diastolic CHF. - Likely secondary to tricuspid regurgitation and also ALBER. - Continue Lasix but will switch to PO 40 mg BID tomorrow. - Will need potassium supplementation of at least 20 mEq PO daily. 6) Acute gout exacerbation. - Allopurinol was held due to concerns with her LFT's. Patient now having left knee pain and tenderness. - Re-start allopurinol at 100 mg daily (home dose 300 mg). - Start colchicine 0.6 mg BID for five days. - Check uric acid level. Thank you for this interesting consultation. We will continue to follow along closely at this time. Patient was seen and examined. Case discussed with a resident. Agreed with assessment and plan as above. Shree Portillo MD Pg [phone] GI Prophylaxis: Not indicated VTE Prophylaxis: Sub-Q Enoxaparin, Theraputic Anticoag with Warfarin Resuscitation Status: CPR: Attempt Resuscitation Carlie Feng DO Mar 01, 2017 09:34 Toni Taylor MD Mar 01, 2017 14:28
[2017-03-01] MEDS: HYDROcodone-APAP 5-325 mg Tablet PO PRN (13:50)
--- NOTE | 2017-03-01 14:40 | NUR ---
Social Work Note: Initial Assessment Data& Assessment: EMR reviewed. SW met with pt, pt son and pt samiraece Mony at bedside to discuss discharge planning, SW role explained. Charlotte Mccann is a 81 year old female admitted on 02/26/2017 for CHF exacerbation and hyponatremia. Pt has Medicare and [employer] insurance coverage. Pt sees Lisa Iyer MD for primary care. Pt lives in [place] with family and is independent at baseline. Per pt family, pt does not normally require any DME and pt does not have HH or SNF hx. Pt does live in a two story home with four steps to enter the home and 6 steps to get to the second floor of the home. Pt does not drive. Pt does not have LTC insurance or VA benefits. Pt family provided with DPOA/Advance Direct paperwork to review and complete when possible. Pt family to transport pt home when medically ready. Pt family denies any other needs at this time. SW to continue to follow. Plan: Anticipated discharge home via POV when medically ready with family support. SW to continue to follow for MD orders and pt needs. SANDY Nowak Addendum: 03/01/17 at 1446 by HERVE HURLEY Amended: Links added.
--- NOTE | 2017-03-01 16:40 | PCM.PNMED ---
Subjective Date of Service Mar 01, 2017 Subjective 81-year-old female with chronic, chronic atrial fibrillation on anticoagulation , ALBER on chronic CPAP, stage III CKD, presents with hyponatremia and dyspnea. More alert today. Chief complaint is knee pain. Family friends at bedside feel she is clinically improved today. Exam Vital Signs Vital Sign - Last Date Time Temp Pulse Resp B/P Pulse Ox O2 Delivery O2 Flow Rate FiO2 03/01/17 12:44 36.6 70 18 128/66 97 Room Air 02/27/17 23:50 0.00 Intake and Output 02/28/17 02/28/17 03/01/17 Cumulative From/Thru 14:59 22:59 06:59 02/26/17 17:09 - 03/01/17 06:39 Intake Total 700 ml 500 ml 2175 ml Output Total 3300 ml 1450 ml 8470 ml Balance -2600 ml -950 ml -6295 ml Intake Oral 700 ml 500 ml 2175 ml Output Urine Total 3300 ml 1450 ml 8470 ml # Voids 4 Exam General: Centrally obese, no acute distress. Family present and translating. HEENT: Ecchymosis on right cheek, sclerae anicteric, oral mucosa moist Neck: Difficult to assess JVD Chest: clear to auscultation Cardiac: S1S2, no murmur appreciated Abdomen: BS normal, non-tender Extremities: No edema; left knee tender to palpate no apparent effusion. No warmth or redness. Neuro: Alert responding to questions, cranial nerves symmetric, motor strength and coordination for called to assess IVs and Medications Medications Reviewed: Medications were reviewed in detail Lab and Diagnostics Result Diagram: 02/28/17 0330 03/01/17 0300 X-Rays, CTs and MRIs PROCEDURE: X-RAY CHEST ONE VIEW, PORTABLE ([id number]) IMPRESSION: Cardiomegaly , and mild interstitial prominence similar to previous examination. Minimal edema cannot be excluded. Dictated by: Ned GALVIN Interpreted: Moe Regan MD on 02/28/2017 at 11:20 PROCEDURE: X-RAY CHEST ONE VIEW, PORTABLE ([id number]) IMPRESSION: 1. Mild pulmonary edema and cardiomegaly suggesting congestive heart failure. Dictated by: Marcos Rider M.D. on 02/26/2017 at 18:02 PROCEDURE: US ABDOMEN IMPRESSION: 1. Increased hepatic echogenicity noted likely related to fatty infiltration of the liver but other sources of hepatocellular disease cannot be excluded. Recommend clinical correlation. 2. Patient is not n.p.o. and the gallbladder is contracted. If indicated repeat limited gallbladder ultrasound could be performed. Dictated by: Ned GALVIN Interpreted: Mila Sr MD on 02/27/2017 at 17: 03 PROCEDURE: US VENOUS LEG DUPLEX BILATERAL IMPRESSION: 1. No evidence of deep venous thrombosis in the right or left lower extremity. Dictated by: Marcos Rider M.D. on 02/28/2017 at 11:36 . Assessment & Plan Patient is an 81 year oldwoman with a history of CKD stage 3, CAD, HTN, DM2. She presented to [facility] with worsening dyspnea and hyponatremia. #) Hyponatremia, acute on chronic, presumed onset over 48 hrs. Na level 128 on prior to this admission, 137 on 09/30/16. Urine osmolality of 300 on admission is ambiguous. Urine specific gravity is generally low, and recurrent urine osmolality is low. Picture is not consistent with SIADH or CHF related hyponatremia. Most consistent with free water overload. Degree of hyponatremia seems disproportionate to her rather mild CHF. - Counseled patient on daily fluid intake less than 1 L, unless gastrointestinal illness or dehydration - Repeat BMP in a.m. #) Left knee pain, acute on chronic. Differential includes DJD, CPPD, gout. Physical exam does not suggest inflammatory arthritis at this time. Suspect DJD complicated by immobilization. - Increase mobility - Nonpharmacologic measures, acetaminophen, tramadol as needed - Short-term colchicine treatment initiated by nephrology consult #) Chronic diastolic CHF. This is most likely right-sided heart failure related to her ALBER and tricuspid regurg. ProBNP was 2710 on admission, and has remained stable despite diuresis. Chest x-ray was read as showing mild pulmonary edema but she has had O2 sats 97-100% on room air. Chest x-ray seems unimpressive and echocardiogram does not suggest impaired LVEF as a cause of either dyspnea or hyponatremia. - No chronic therapy for diastolic CHF recommended by Cardiology consult - Plan PCP follow-up to monitor diuretic need for pedal edema and right-sided heart failure #) CKD stage 3a with proteinuria, stable. Recent outpatient serum creatinine 1.01. Creatinine seems stable despite diuresis. - Repeat BMP in a.m. #) Subclinical hypothyroidism. Ambulatory thyroid function tests in 2016 were normal. Current TSH of 5 seems trivial, but should have hypothyroidism obviously complicates diagnosis of hyponatremia. Repeat thyroid function tests are normal #) Pyuria, present on admission. History of Recent UTI. Current urine culture is no growth. -No treatment indicated #) ALBER, chronic. Likely cause of right-sided heart failure and pedal edema. -Reinforced need for good compliance with home CPAP #) Paroxysmal atrial fibrillation, chronic. Rate is been well controlled. Current INR is 1.95 - Continue warfarin Plan discharge home on 03/02. GI Prophylaxis: Not indicated VTE Prophylaxis: Sub-Q Enoxaparin, Theraputic Anticoag with Warfarin Resuscitation Status: CPR: Attempt Resuscitation Time spent 35 minutes Homero Yao MD Mar 01, 2017 16:40
--- NOTE | 2017-03-01 18:40 | NUR ---
Tele/Ambulation No reports of chest pain/pressure/discomfort. Tele VPACED 70s with underlying AFIB. No reports of SOB at rest, SPO2 on RA 99%. RN notes labored breathing with movement. ALBER, home CPAP at bedside. Denies n/v or abdominal pain. Patient/family reports constipation, administered PRN senna. Voiding via BSC without complication. Patient is alert to self only at this time. Per family patient is confused at baseline which gets worse at night. Follows commands appropriately. Reports full sensation, ARAUJO.
[2017-03-02 03:30] VITALS: BP 97/58; PULSE 70; RESP 20; O2SAT 97
[2017-03-02 04:10] LABS: INR 2.37 ratio
[2017-03-02 05:33] VITALS: PULSE 70
--- NOTE | 2017-03-02 07:25 | NUR ---
Cardiac Pt denies pain throughout. VSS. Family at the bedside providing care and comfort. No overt complications noted.
--- NOTE | 2017-03-02 09:22 | PCM.DIMED ---
Discharge Instructions Date of Service Mar 02, 2017 Dates of Hospitalization Feb 26, 2017 at 21:18 Discharge Diagnosis Discharge Diagnosis Hyponatremia (low sodium concentration) Pedal edema Right sided heart failure Obstructive sleep apnea requiring CPAP Medication Instructions Additional med instructions Your low sodium concentration is due to drinking too much fluids, while taking medication such as furosemide which cause your body to lose sodium. You may continue to take furosemide to control your edema, but reduce the amount of water, coffee, tea you drink each day. Your INR was low at 1.57 when you were admitted to hospital. At time of discharge is 2.37 which is in range. Your INR should be rechecked within the next 1-2 weeks. Diet Discharge Diet: Other (limit fluids including water, coffee, tea to approximately 1 L per day) Patient Instructions Patient Instructions The swelling in your ankles is due to stress on the right side of your heart. This may be due to your obstructive sleep apnea. It is important that you use your CPAP machine whenever you are sleeping or resting. Follow-up Provider: Lisa Iyer MD Follow-up with PCP in: 1 week Homero Yao MD Mar 02, 2017 09:22
[2017-03-02 09:36] VITALS: BP 124/79; PULSE 70; RESP 20; O2SAT 98
[2017-03-02] MEDS: Pantoprazole 40 mg ER24 Tablet PO SCH (09:44)
[2017-03-02] MEDS: Sodium Chloride LOK Flush 10 mL Syringe IVFLUSH SCH (09:44)
--- NOTE | 2017-03-02 11:31 | PCM.PNMED ---
Subjective Date of Service Mar 02, 2017 Subjective NEPHROLOGY PROGRESS NOTE Patient is feeling better again today. Her left knee pain has improved and she has been able to move about the room. She continues to deny dyspnea and wheezing. Her edema appears improved. Exam Vital Signs Vital Sign - Last Date Time Temp Pulse Resp B/P Pulse Ox O2 Delivery O2 Flow Rate FiO2 03/02/17 09:36 37.3 70 20 124/79 98 Room Air 02/27/17 23:50 0.00 Intake and Output 03/01/17 03/01/17 03/02/17 Cumulative From/Thru 15:00 23:00 07:00 02/26/17 17:09 - 03/02/17 05:34 Intake Total 600 ml 200 ml 2975 ml Output Total 550 ml 350 ml 9370 ml Balance 50 ml -150 ml -6395 ml Intake Oral 600 ml 200 ml 2975 ml Output Urine Total 550 ml 350 ml 9370 ml # Voids 4 Exam General: Cooperative, No Acute Distress Head: Normal, Ecchymosis to right chin Eyes: PERRLA, EOMI, Scleral Anicteric Neck: No appreciable JVD Chest & Lungs: CTAB, no adventitious lung sounds Cardiovascular: Regular Rate/Rhythm, No Murmurs/Rubs/Gallops Pulses: Radial (Present and equal bilaterally), Dorsalis Pedis (difficult to appreciate bilaterally) Abdomen: Non-tender, Normoactive bowel tones Genitourinary: Bailey Absent Extremities: No edema; no tenderness to palpation Neurological: Grossly Neurologically Intact, Cranial Nerves 2-12 Intact, Normal Speech IVs and Medications Medications Reviewed: Medications were reviewed in detail Lab and Diagnostics Result Diagram: 02/28/17 0330 03/02/17 0320 Assessment & Plan Patient is an 81 year old [place] woman with a history of CKD stage 3, CAD, HTN , DM2. She presented to [facility] with worsening dyspnea. Admitted for management of fluid overload and hyponatremia. Nephrology consulted to assist with hyponatremia. Hospital day #4. 1) Hyponatremia, likely chronic, presumed onset over 48 hrs. Improving. - Hypervolemic on initial exam. Likely secondary to salt and water retention. - Continue to monitor BMP. - At time of discharge will need close follow up with outpatient labs. 2) Fluid overload. Improved. - Continue Lasix 40 mg BID. - Continue PO fluid restriction on 1L. - Recommend low salt diet (2 gm daily). 3) CKD stage 3, stable. - Close follow up with PCP Dr. Iyer and BMP in about 1 week. - Avoid nephrotoxic medications when possible. 4) Recent UTI with pyuria seen on UA x2. - Received 5 day course of nitrofurantoin. - Patient asymptomatic currently. - Culture data negative so far. Will defer to primary team concerning antibiotics or lack thereof. 5) Diastolic CHF. - Likely secondary to tricuspid regurgitation and also ALBER. - Continue Lasix PO 40 mg BID. - Will need potassium supplementation of at least 20 mEq PO daily. 6) Acute gout exacerbation. - Allopurinol was held due to concerns with her LFT's. Patient now having left knee pain and tenderness. - Continue allopurinol at 100 mg daily at time of discharge. Outpatient follow up to determine if this is sufficient dosing with repeat uric acid level. - Continue colchicine 0.6 mg BID (day 2 of 5). Thank you for this interesting consultation. We will continue to follow along closely at this time. Patient was seen and examined. Case discussed with a resident. Agreed with assessment and plan as above. Shree Portillo MD Pg [phone] GI Prophylaxis: Not indicated VTE Prophylaxis: Sub-Q Enoxaparin, Theraputic Anticoag with Warfarin Resuscitation Status: CPR: Attempt Resuscitation copies to: Lisa Iyer MD, Jennifer E DO Mar 02, 2017 11:31 Toni Taylor MD Mar 03, 2017 14:04
--- NOTE | 2017-03-02 12:30 | NUR ---
Discharge pt ordered for discharge home with family care. pt/family aware. discharge instructions and medications reviewed with family via electronic interpretive service. family denied questions or concerns. pt escorted to front lobby via wheelchair with all belongs.
--- NOTE | 2017-03-02 13:46 | PCM.PALLBR ---
Palliative Care Recommendation 81-year-old female with history of diastolic CHF, chronic atrial fibrillation on anticoagulation, ALBER on chronic CPAP, stage III CRF, etc., who presented with severe hyponatremia and complaints of progressive dyspnea. Per family, was hospitalized with similar complaints in the [facility] several months ago when they were told she had congestive heart failure. Palliative medicine consulted to assist patient and family with determination of goals of care. Summary of palliative recommendations: -Symptom management (Pain/other)- management of CHF/pulmonary edema per medical/ sr risk management consultant teams. Patient has improved significantly and will probably be discharged today. -DPOA/Advanced Directives/POLST- per family, no documentation previously completed. Lives with her son Darrius (currently out of town commercial fishing) and his Tamia- niece Mony that I spoke earlier in the week indicated family feels it makes most sense that Darrius and Tamia act as POA. Family has never discussed advanced directive issues with the patient- they have been reluctant/avoiding doing so, but Mony said that they are all beginning to realize this would be something important to undertake, and will begin having these conversations amongst themselves over the next several days. At this time, they wish patient to remain full code. Encouraged to continue these discussions at time of next follow-up with PCP -Family/emotional support- excellent support from family members and friends as outlined Additional Medical Diagnoses with primary management by Hospitalist team include : # Acute on chronic diastolic heart failure and pulmonary edema and elevated BNP. , present on admission, treatment ongoing # Acute hypovolemic hyponatremia, present on admission, treatment initiated # Gastroesophageal reflux disease, present on admission # Essential hypertension, controlled, present on admission # Obstructive sleep apnea on CPAP, present on admission # Paroxysmal atrial fibrillation, not present on admission, status post pacemaker placement, on anticoagulation. Stable # Chronic kidney disease, stage III, present on admission, stable. Problems: End of Life Preferences Remains full code at this time Goals of Care Recovery/stabilization and able to return home to live with her son and daughter -in-law Disposition Home with family Resuscitation Status Resuscitation Status: CPR: Attempt Resuscitation POLST Updates/Changes Previous POLST?: No . Pain: None Total time 25 minutes; >50% face to face with patient and family, providing counselling regarding plans and recommendations about advanced directive issues , and in care coordination with her medical teams. copies to: Lisa Iyer MD Palliative Brief Note Date of Service Mar 02, 2017 . Returned to reevaluate patient. Prior to visiting, reviewed her updated records in the EMR. Spoke with her hospitalist Dr. Yao and her bedside nurse I arrived, she was sitting up on the couch, in no distress. Breathing is significantly improved. Her daughter Tamia, with whom she lives, was with her. Supervisor Hardboard not available and Tamia is not fully fluent in Dutch. We reviewed the patient's status as best we could. I explained the patient's right heart failure to Tamia and talked a little bit about prognosis with her. Reviewed the need to talk further about advanced directive issues with her PCP in the coming months. Brief exam today showed patient to be in no distress, vital signs noted, lungs with improved air movement. Lower extremity edema improved. Laboratories reviewed in detail. Mingo Arias MD Mar 02, 2017 13:46
--- NOTE | 2017-03-02 15:47 | PCM.DC.MED ---
Discharge Summary Date of Service Mar 02, 2017 Dates of Hospitalization Date of Hospital Admission Feb 26, 2017 at 21:18 Date of Discharge: Mar 02, 2017 Providers: Admitting Physician: Jayshree Grimm DO Primary Care Physician: Lisa Iyer MD Attending Physician: Jayshree Grimm DO Diagnosis at Time of Discharge Diagnosis at Time of Discharge Hyponatremia (low sodium concentration) Encephalopathy, metabolic Pedal edema Right sided heart failure Obstructive sleep apnea requiring CPAP Consultations Nephrology, Dr. Downing Procedures XRay, CTs & MRIs PROCEDURE: X-RAY CHEST ONE VIEW, PORTABLE ([id number]) IMPRESSION: Cardiomegaly , and mild interstitial prominence similar to previous examination. Minimal edema cannot be excluded. Dictated by: Ned GALVIN Interpreted: Moe Regan MD on 02/28/2017 at 11:20 PROCEDURE: X-RAY CHEST ONE VIEW, PORTABLE ([id number]) IMPRESSION: 1. Mild pulmonary edema and cardiomegaly suggesting congestive heart failure. Dictated by: Marcos Rider M.D. on 02/26/2017 at 18:02 PROCEDURE: US ABDOMEN IMPRESSION: 1. Increased hepatic echogenicity noted likely related to fatty infiltration of the liver but other sources of hepatocellular disease cannot be excluded. Recommend clinical correlation. 2. Patient is not n.p.o. and the gallbladder is contracted. If indicated repeat limited gallbladder ultrasound could be performed. Dictated by: Ned GALVIN Interpreted: Mila Sr MD on 02/27/2017 at 17: 03 PROCEDURE: US VENOUS LEG DUPLEX BILATERAL IMPRESSION: 1. No evidence of deep venous thrombosis in the right or left lower extremity. Dictated by: Marcos Rider M.D. on 02/28/2017 at 11:36 . Brief History History of Present Illness (per admission note): prieto Mccann is an 81-year-old woman history of congestive heart failure, chronic kidney disease stage III, paroxysmal atrial fibrillation status post dual-chamber pacemaker placement, on anticoagulation with warfarin, who presents to the emergency department with her family for 2 days of ongoing shortness of breath. She was seen here for the same 6 days ago and treated for CHF exacerbation and discharged home with a diagnosis of UTI at the same time. She became weaker and more short of breath as the days went on, family describes her as having a chronic cough, nonproductive. Her shortness of breath as well as lower extremity edema. She get worse 2 days ago. She has no history of asthma or COPD and is a nonsmoker, however she is noticeably wheezing which is also worsened over the last 2 days. Family claims that 2 months ago they were in the [facility] where she had similar presentation, requiring 4 days of treatment in the hospital, at which time they also gave her nebulizer treatments every 4 hours. In the emergency department she was found to have a serum sodium of 112, chloride 78, creatinine 0.68, ALT of 49, BNP 2710, negative troponin INR 1.53. . Hospital Course Acute, Active or High-risk Problems: #) Hyponatremia, acute on chronic, presumed onset over 48 hrs. Na level 128 on prior to this admission, 137 on 09/30/16. Urine osmolality of 300 on admission, subsequently 100. Urine specific gravity is generally low, and recurrent urine osmolality is low. Picture is not consistent with SIADH or CHF related hyponatremia. Picture was most consistent with free water overload. It was difficult to obtain an accurate history regarding her free water intake. She received 1 dose of tolvaptan combined with Lasix and had substantial free water diuresis. She subsequently followed free water restriction with further improvement in her serum sodium at an appropriate rate. - Counseled patient on daily fluid intake less than 1 L, unless gastrointestinal illness or dehydration - Low-dose furosemide for control of pedal edema but need to monitor for sodium loss and recurrent hyponatremia. #) Encephalopathy, present on admission. Patient demonstrated markedly reduced mental status and limited verbal interaction for approximately 2 days. This appeared to improve with recovery from hyponatremia. - Resolved #) Chronic diastolic CHF. This is most likely right-sided heart failure related to her ALBER and tricuspid regurg. ProBNP was 2710 on admission, but has remained stable despite diuresis. Echocardiogram reveals moderate to severe tricuspid regurgitation with reduced right ventricular function. This seems consistent with ALBER-related pulmonary hypertension or possibly TR due to pacemaker wire placement. Chest x-ray was read as showing mild pulmonary edema but seem more like haziness due to body habitus. She has had O2 sats 97-100% on room air normal respiratory rate. She had episodes of transient tachypnea. Chest x-ray seems unimpressive and echocardiogram does not suggest impaired LVEF as a cause of either dyspnea or hyponatremia. - Low dose diuretic for diastolic right-sided CHF with pedal edema recommended by Cardiology consult - Plan PCP follow-up to monitor diuretic therapy and risk for hyponatremia #) CKD stage 3a with proteinuria, stable. Creatinine did time of admission was 0.68. Subsequently christos to 1.13 after Lasix therapy. Recent outpatient serum creatinine was 1.01. -Stable #) ALBER, chronic. Likely cause of right-sided heart failure and pedal edema. -Reinforced need for good compliance with home CPAP #) Goals of care. Palliative consultation was obtained but it was difficult to achieve understanding of goals of care issues. The patient has had several recent hospitalizations. She has significant right heart disease related to her body habitus and ALBER. She has reduced mobility. - Defer to primary care provider regarding goals of care and recurrent hospitalizations. Other issues #) Paroxysmal atrial fibrillation, chronic. Rate is been well controlled. INR was 1.57 on admission. Subsequent 2.37 prior to discharge - Continue warfarin #) Left knee pain, acute on chronic. Differential includes DJD, CPPD, gout. Physical exam does not suggest inflammatory arthritis at this time. Suspect DJD complicated by immobilization. - Self-limited and resolved within 24 hours #) Artifactual thyroid function abnormality. Ambulatory thyroid function tests in 2016 were normal. She had initial TSH of 5.0, Repeat thyroid function tests are normal #) Pyuria, present on admission. History of Recent UTI. Current urine culture is no growth. -No treatment indicated . Exam Vital Signs (Last) Date Time Temp Pulse Resp B/P Pulse Ox O2 Delivery O2 Flow Rate FiO2 03/02/17 05:33 70 03/02/17 03:30 36.7 20 97/58 97 Room Air 02/27/17 23:50 0.00 Exam General: Centrally obese, no acute distress. Family present and translating. HEENT: Ecchymosis on right cheek, sclerae anicteric, oral mucosa moist Neck: Difficult to assess JVD Chest: clear to auscultation Cardiac: S1S2, no murmur appreciated Abdomen: BS normal, non-tender Extremities: No edema; left knee unremarkable today. Neuro: Alert responding to questions, cranial nerves symmetric, Test 02/26/17 17:27 02/26/17 22:50 02/26/17 23:10 02/27/17 00:00 Hold Staples Top Tube Received (Received) Urine Random Sodium 63mEq/L Activated Partial Thromboplast Time 31.0sec (22.8-33.0) Hemoglobin A1c 7.0% (4.8-5.6) Osmolality 252 (275-300) Prealbumin 20mg/dL (20-40) Urinalysis Comment None Test 02/27/17 04:30 02/27/17 22:10 02/28/17 02:50 02/28/17 03:30 Triglycerides Level 48mg/dL (0-149) Cholesterol Level 102mg/dL (100-199) LDL Cholesterol, Calculated 28.400mg/dL (0-99) VLDL Cholesterol 9.600mg/dL HDL Cholesterol 64mg/dL (>39) Cholesterol/HDL Ratio 1.59 (0.0-4.4) Troponin T < 0.010ug/L (0.0-0.011) Urine Color Straw (YELLOW) Urine Appearance Hazy (CLEAR,HAZY) Urine pH 6.0 (5.0-8.0) Urine Specific [place] 1.003 (1.003-1.035) Urine Protein Negativemg/dL (NEG,TRACE) Urine Glucose (UA) Negativemg/dL (NEGATIVE) Urine Ketones Negativemg/dL (NEGATIVE) Urine Occult Blood Small (NEGATIVE) Urine Nitrite Negative (NEGATIVE) Urine Bilirubin Negative (NEGATIVE) Urine Urobilinogen Normalmg/dL (NORMAL) Urine Leukocyte Esterase Large (NEGATIVE) Urine RBC 0-2/hpf (0-2) Urine WBC Packed/hpf (0-5) Urine Epithelial Cells Many/hpf (NONE-MOD) Urine Crystals None seen (NONE SEEN) Urine Bacteria None/hpf (NONE-FEW) Urine Hyaline Casts None/lpf (NONE) Urine Granular Casts None seen (NONE SEEN) Urine Waxy Casts None seen (NONE SEEN) Urine Red Blood Cell Casts None seen (NONE SEEN) Urine White Blood Cell Casts None seen (NONE SEEN) Urine Mucus None seen (None Seen) Urine Trichomonas None seen (NONE SEEN) Urine Yeast None (NONE SEEN) Urine Culture Reflexed Indicated Urine Osmolality 110mOs/kH2O (250-1200) Urine Random Creatinine 17mg/dL (15-278) Urine Random Total Protein 8mg/dL (0-15) White Blood Count 9.6th/mm3 (3.8-10.1) Red Blood Count 3.45mil/mm3 (3.90-5.20) Hemoglobin 10.2g/dL (12.0-15.6) Hematocrit 29.5% (35.0-46.0) Mean Corpuscular Volume 85.5fL (81-100) Mean Corpuscular Hemoglobin 29.6pg (27.0-35.0) Mean Corpuscular Hemoglobin Concent 34.6% (32.0-37.0) Red Cell Distribution Width 13.9% (12.3-15.4) Platelet Count 193bil/L (150-400) Neutrophils (%) (Auto) 57.6% (40-74) Lymphocytes (%) (Auto) 23.7% (14-46) Monocytes (%) (Auto) 16.3% (4-12) Eosinophils (%) (Auto) 1.8% (0-5) Basophils (%) (Auto) 0.4% (0-3) Total Bilirubin 1.8mg/dL (0.0-1.2) Aspartate Amino Transf (AST/SGOT) 44U/L (0-50) Alanine Aminotransferase (ALT/SGPT) 47U/L (0-32) Alkaline Phosphatase 46U/L (25-165) Total Protein 6.1g/dL (6.4-8.4) Albumin 3.6g/dL (3.4-5.0) Cortisol 19.9ug/dL (.) Test 03/01/17 03:00 03/01/17 23:50 03/02/17 03:20 Uric Acid 4.9mg/dL (2.6-7.2) Magnesium Level 2.0mg/dL (1.6-2.6) Pro-B-Type Natriuretic Peptide 2015pg/mL (0-738) Thyroid Stimulating Hormone (TSH) 1.860uIU/mL (0.450-4.500) Free Thyroxine 1.63ng/dL (0.82-1.77) Hold Urine Received (Received) Prothrombin Time 25.8sec (8.1-12.5) Prothromb Time International Ratio 2.37ratio Sodium Level 133mEq/L (134-144) Potassium Level 4.4mEq/L (3.5-5.2) Chloride Level 99mEq/L (97-108) Carbon Dioxide Level 26mmol/L (18-29) Blood Urea Nitrogen 27mg/dL (8-27) Creatinine 1.13mg/dL (0.57-1.00) Estimat Glomerular Filtration Rate 66mL/min (>59) Glucose Level 105mg/dL (60-99) Calcium Level 8.4mg/dL (8.5-10.1) Discharge Medications Discharge Medications Alendronate Sodium (Fosamax) 70 Mg Tablet 70 MG PO WEEKLY (Reported) THURSDAYS Allopurinol (Allopurinol) 300 Mg Tablet 300 MG PO DAILY Prescribed by: STACY GUZMAN MD Amlodipine (Amlodipine) 10 Mg Tablet 10 MG PO QAM (Reported) Aspirin Chew (Aspirin Chew) 81 Mg Chew 81 MG PO QAM (Reported) Atorvastatin (Lipitor) 40 Mg Tablet 40 MG PO HS (Reported) Carvedilol (Carvedilol) 6.25 Mg Tablet 6.25 MG PO BID Prescribed by: STACY GUZMAN MD Furosemide (Lasix) 40 Mg Tablet 40 MG PO DAILY Prescribed by: STACY GUZMAN MD Omeprazole (Omeprazole) 40 Mg Capsule.dr 40 MG PO DAILY Prescribed by: STACY GUZMAN MD Valsartan (Valsartan) 320 Mg Tablet 320 MG PO HS (Reported) Warfarin Sodium (Warfarin Sodium) 2.5 Mg Tablet 1.25 MG PO QPM (Reported) As needed Albuterol Neb Soln (Albuterol Neb Soln) 2.5 Mg/3 Ml Vial.neb 2.5 MG INHALATION Q4H PRN PRN For Shortness of Breath (Reported) Hydrocodone-Acetaminophen 5-325 mg (Hydrocodone-Acetaminophen 5-325 mg) 1 Each Tablet 1 TABLET PO BID PRN PRN For Pain (Reported) Zinc Oxide (Zinc Oxide) 57 Gm Oint...g. 1 APPLIC TP BID PRN PRN RASH (Reported) Additional med instructions Your low sodium concentration is due to drinking too much fluids, while taking medication such as furosemide which cause your body to lose sodium. You may continue to take furosemide to control your edema, but reduce the amount of water, coffee, tea you drink each day. Your INR was low at 1.57 when you were admitted to hospital. At time of discharge is 2.37 which is in range. Your INR should be rechecked within the next 1-2 weeks. Followup Plan Discharge Diet: Other (limit fluids including water, coffee, tea to approximately 1 L per day) Patient Instructions The swelling in your ankles is due to stress on the right side of your heart. This may be due to your obstructive sleep apnea. It is important that you use your CPAP machine whenever you are sleeping or resting. Follow-up Provider: Lisa Iyer MD Follow-up with PCP in: 1 week Time spent 35 minutes copies to: Lisa Iyer MD, Jeffrey W MD Mar 02, 2017 09:23
[2017-03-03] MEDS ORDERED: Potassium Chloride 20 mEq SR Tablet PO SCH (08:30)
== END 2017-03-02 12:42 | disposition home or self-care (01) | DRG 291 ==
LOC: SED 17:07 → PCC 21:18
PROVIDERS: ADMIT Internal Medicine; ATTEND Internal Medicine
DX: I50.32 Chronic diastolic (congestive) heart failure (principal); G93.41 Metabolic encephalopathy; E87.1 Hypo-osmolality and hyponatremia; E87.70 Fluid overload, unspecified; G47.33 Obstructive sleep apnea (adult) (pediatric); I48.0 Paroxysmal atrial fibrillation; Z79.01 Long term (current) use of anticoagulants; N18.3 Chronic kidney disease, stage 3 (moderate); M10.9 Gout, unspecified; Z79.82 Long term (current) use of aspirin; Z95.0 Presence of cardiac pacemaker; K21.9 Gastro-esophageal reflux disease without esophagitis; I12.9 Hypertensive chronic kidney disease with stage 1 through stage 4 chronic kidney disease, or unspecified chronic kidney disease; Z51.5 Encounter for palliative care; Z87.440 Personal history of urinary (tract) infections; E03.9 Hypothyroidism, unspecified; M25.562 Pain in left knee; R82.99 Other abnormal findings in urine